=== PATIENT | male | born 1960 | race Caucasian/White ===

== ENCOUNTER → 2017-12-06 | Outpatient (CLI) | payer BC, MEDICAID ==
--- NOTE | 2017-12-07 08:53 | XR ---
EXAMINATION TYPE: XR elbow complete RT DATE OF EXAM: 12/06/2017 COMPARISON: NONE HISTORY: Pain FINDINGS: Three views of the elbow demonstrate no pathologic joint effusion. The osseous structures are intact . There is no acute fracture or dislocation. There is a olecranon spur and hypertrophic change involving the head of the radius. There is a linear band of density along the neck of the radius which may been the basis of fracture. IMPRESSION: 1. No acute fracture or dislocation. If symptoms persist follow-up study in 7 to 10 days could be ob tained. 2. Olecranon spur. 3. Findings suspicious for previous fracture involving the proximal radius correlate clinically.
== END | disposition home or self-care (01) ==
LOC: RADXRYALE 16:03
PROVIDERS: ATTEND Family Medicine
DX: M77.8 Other enthesopathies, not elsewhere classified (principal)

== ENCOUNTER 2018-07-05 22:24 | Emergency (ER) | payer BC, MEDICAID ==
[2018-07-05 22:37] VITALS: RESP 18
[2018-07-05] MEDS ORDERED: KETOROLAC 30 MG/ML 1 ML VIAL IVP STA (23:23)
[2018-07-05 23:51] LABS: Appearance,Urine Clear (Clear); Basophils # (A) 0.1 k/uL (0-0.2); Basophils % (A) 1 %; Bilirubin,Urine Negative (Negative); Blood,Urine Negative (Negative); Color,Urine Light Yellow; Eosinophils # (A) 0.4 k/uL (0-0.7); Eosinophils % (A) 4 %; Glucose,Urine (UA) Negative (Negative); HCT 45.2 % (39.0-53.0); HGB 14.9 gm/dL (13.0-17.5); Ketones,Urine Negative (Negative); Leukocyte Esterase,Urine Negative (Negative); Lymphocytes # (A) 2.5 k/uL (1.0-4.8); Lymphocytes % (A) 32 %; MCH 29.9 pg (25.0-35.0); MCV 90.5 fL (80.0-100.0); Mean Platelet Volume 7.5; Monocytes # (A) 0.5 k/uL (0-1.0); Monocytes % (A) 7 %; Neutrophils # (A) 4.2 k/uL (1.3-7.7); Neutrophils % (A) 53 %; Nitrite,Urine Negative (Negative); Platelet Count 221 k/uL (150-450); Protein,Urine Negative (Negative); RDW 13.3 % (11.5-15.5); Specific Gravity,Urine 1.006 (1.001-1.035); Urobilinogen,Urine <2.0 mg/dL (<2.0); WBC 7.9 k/uL (3.8-10.6)
[2018-07-06 00:03] LABS: ALT 52 U/L (21-72); AST 33 U/L (17-59); Albumin 4.2 g/dL (3.5-5.0); Alkaline Phosphatase 50 U/L (38-126); Amylase 48 U/L (30-110); Anion Gap 6 mmol/L; Blood Urea Nitrogen 17 mg/dL (9-20); Carbon Dioxide 26 mmol/L (22-30); Chloride 108 mmol/L (98-107); Glucose 106 mg/dL (74-99); Lipase 118 U/L (23-300); Potassium 4.3 mmol/L (3.5-5.1); Sodium 140 mmol/L (137-145); Total Bilirubin 0.4 mg/dL (0.2-1.3); Total Protein 7.1 g/dL (6.3-8.2)
--- NOTE | 2018-07-06 00:56 | XR ---
EXAMINATION TYPE: XR chest 2V DATE OF EXAM: 07/05/2018 COMPARISON: NONE HISTORY: Back pain TECHNIQUE: Frontal and lateral views of the chest are obtained. FINDINGS: Heart and mediastinum are normal. Lungs are clear. Diaphragm is normal. Bony thorax is int act. IMPRESSION: Normal chest.
--- NOTE | 2018-07-06 00:57 | XR ---
EXAMINATION TYPE: XR KUB DATE OF EXAM: 07/05/2018 COMPARISON: 01/14/2010 HISTORY: Back pain TECHNIQUE: 2 views upright FINDINGS: Bowel gas pattern is normal. There is no sign of intestinal obstruction or pneumoperitoneum . Fecal pattern is normal. Lung bases are clear. There are no pathologic calcifications over the kidn eys. IMPRESSION: Nonacute abdomen. No change.
--- NOTE | 2018-07-06 01:35 | ED ---
Back Pain HPI - General Chief Complaint: Back Pain/Injury Stated Complaint: Back Pain Time Seen by Provider: 07/05/18 23:09 Source: patient Limitations: no limitations - History of Present Illness Initial Comments: 58-year-old male patient presents to the emergency department today for complaints of right flank and right lower back pain. Patient states been going on for the last month however over the last couple of days it has worsened significantly. Patient states that the pain is sharp and stabbing. Does report the pain increases with movement and taking deep breaths. Patient denies any fevers or chills. Denies any hematuria. He states that the pain did get so bad today that he did have a vomiting episode. Patient denies any known injury to the back. Denies any history of kidney stones. Denies any constipation or diarrhea. Patient denies any recent rash, fever, chills, shortness breath, chest pain, abdominal pain, numbness, tingling, dizziness, weakness, headache, visual changes, or any other complaints. - Related Data Home Medications Medication Instructions Recorded Confirmed Aspirin 81 mg PO DAILY 08/02/14 08/02/14 Famotidine [Pepcid] 20 mg PO BID 08/02/14 08/03/14 Fenofibrate Nanocrystallized 145 mg PO DAILY 08/02/14 08/03/14 [Tricor] Furosemide [Lasix] 10 mg PO DAILY 08/02/14 08/03/14 Lisinopril [Zestril] 20 mg PO DAILY 08/02/14 08/03/14 [employer] Oil/Henderson-3 Fatty Acids 1 each PO TID 08/03/14 08/03/14 [Fish Oil 500 mg Softgel] Vit D3/Folic Acid/B2/B6/B12 1 each PO DAILY 08/03/14 08/03/14 [Folgard Tablet] Previous Rx's Medication Instructions Recorded Acetaminophen-Codeine 300-30mg 1 tab PO Q6H PRN #12 tablet 07/06/18 [Tylenol #3] Allergies Allergy/AdvReac Type Severity Reaction Status Date / Time Iodinated Contrast- Oral and Allergy Anaphylaxis Verified 07/05/18 22:37 IV Dye [Iodinated Contrast Media - IV Dye] Review of Systems ROS Statement: Those systems with pertinent positive or pertinent negative responses have been documented in the HPI. ROS Other: All systems not noted in ROS Statement are negative. 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 Vital signs upon presentation are temperature 98.2, pulse 70, respirations 18, blood pressure 142/77, pulse ox 98% on room air.) Eye exam: Present: normal appearance, PERRL, EOMI. Absent: scleral icterus, conjunctival injection, periorbital swelling ENT exam: Present: normal exam, normal oropharynx, mucous membranes moist Neck exam: Present: normal inspection. Absent: tenderness, meningismus, lymphadenopathy Respiratory exam: Present: normal lung sounds bilaterally. Absent: respiratory distress, wheezes, rales, rhonchi, stridor Cardiovascular Exam: Present: regular rate, normal rhythm, normal heart sounds. Absent: systolic murmur, diastolic murmur, rubs, gallop, clicks GI/Abdominal exam: Present: soft, normal bowel sounds. Absent: distended, tenderness, guarding, rebound, rigid Back exam: Present: normal inspection. Absent: CVA tenderness (R), CVA tenderness (L) Neurological exam: Present: alert, oriented X3, CN II-XII intact Psychiatric exam: Present: normal affect, normal mood Skin exam: Present: warm, dry, intact, normal color. Absent: rash Course Vital Signs 07/05/18 07/06/18 22:34 01:50 Temperature 98.2 F 97.6 F Pulse Rate 70 61 Respiratory 18 18 Rate Blood Pressure 142/77 144/81 O2 Sat by Pulse 98 100 Oximetry Medical Decision Making - Medical Decision Making 58-year-old male patient presented to the emergency department today for evaluation of right flank and right low back pain. Physical examination did reveal some tenderness to the right low back, no CVA tenderness. Abdomen was soft and nontender. Labs reviewed and are unremarkable. Urinalysis was clear. KUB x-ray and chest x-ray were negative for any acute process. Given patient' s increased pain with movement and location of pain distal to his pain is musculoskeletal in nature. We did discuss SI joint dysfunction is a possibility for his symptoms. He is instructed to follow-up with his primary care physician for recheck in 1-2 days. He is instructed to discuss MRI. Return parameters discussed in detail. He verbalizes understanding and agrees with this plan. - Lab Data Result diagrams: 07/05/18 23:42 07/05/18 23:42 Lab Results 07/05/18 07/05/18 07/05/18 Range/Units 23:42 23:42 23:42 WBC 7.9 (3.8-10.6) k/uL RBC 5.00 (4.30-5.90) m/uL Hgb 14.9 (13.0-17.5) gm/dL Hct 45.2 (39.0-53.0) % MCV 90.5 (80.0-100.0) fL MCH 29.9 (25.0-35.0) pg MCHC 33.0 (31.0-37.0) g/dL RDW 13.3 (11.5-15.5) % Plt Count 221 (150-450) k/uL Neutrophils % 53 % Lymphocytes % 32 % Monocytes % 7 % Eosinophils % 4 % Basophils % 1 % Neutrophils # 4.2 (1.3-7.7) k/uL Lymphocytes # 2.5 (1.0-4.8) k/uL Monocytes # 0.5 (0-1.0) k/uL Eosinophils # 0.4 (0-0.7) k/uL Basophils # 0.1 (0-0.2) k/uL Sodium 140 (137-145) mmol/L Potassium 4.3 (3.5-5.1) mmol/L Chloride 108 H (98-107) mmol/L Carbon Dioxide 26 (22-30) mmol/L Anion Gap 6 mmol/L BUN 17 (9-20) mg/dL Creatinine 0.90 (0.66-1.25) mg/dL Est GFR (CKD-EPI)AfAm >90 (>60 ml/min/1.73 sqM) Est GFR (CKD-EPI)NonAf >90 (>60 ml/min/1.73 sqM) Glucose 106 H (74-99) mg/dL Calcium 9.0 (8.4-10.2) mg/dL Total Bilirubin 0.4 (0.2-1.3) mg/dL AST 33 (17-59) U/L ALT 52 (21-72) U/L Alkaline Phosphatase 50 (38-126) U/L Total Protein 7.1 (6.3-8.2) g/dL Albumin 4.2 (3.5-5.0) g/dL Amylase 48 (30-110) U/L Lipase 118 (23-300) U/L Urine Color Light Yellow Urine Appearance Clear (Clear) Urine pH 6.0 (5.0-8.0) Ur Specific [place] 1.006 (1.001-1.035) Urine Protein Negative (Negative) Urine Glucose (UA) Negative (Negative) Urine Ketones Negative (Negative) Urine Blood Negative (Negative) Urine Nitrite Negative (Negative) Urine Bilirubin Negative (Negative) Urine Urobilinogen <2.0 (<2.0) mg/dL Ur Leukocyte Esterase Negative (Negative) - Radiology Data Radiology results: report reviewed, image reviewed Two-view x-ray of the chest is obtained. Heart mediastinum are normal. Lungs are clear. Diaphragm is normal. Bony thorax is intact. Impression by Dr. Davenport shows normal chest. 2 views of the abdomen are obtained. Bowel gas pattern Ostermann. Sometime of intestinal structure pneumoperitoneum. Fecal pattern is normal. Lung bases are clear. There are no pathologic calcifications over the kidneys. Impression by Dr. Davenport shows nonacute abdomen no change. Disposition Clinical Impression: Low back pain Disposition: HOME SELF-CARE Condition: Good Instructions: Acute Low Back Pain (ED) Additional Instructions: Apply warm moist heat to the painful areas. Apply this 20 minutes at a time at least 4 times daily. Continue taking ibuprofen every 6 hours. Use pain medication as needed. Follow-up with your primary care physician for recheck and to discuss possible MRI. Return here immediately for any new, worsening, or concerning symptoms. Prescriptions: Acetaminophen-Codeine 300-30mg [Tylenol #3] 1 tab PO Q6H PRN #12 tablet PRN Reason: Pain Is patient prescribed a controlled substance at d/c from ED?: Yes When asked, does pt state using other controlled substances?: No If prescribed controlled substance>3 days was MAPS reviewed?: Prescribed <3 Days If opioid is for acute pain is fill amount 7 days or less?: Yes If Rx opioid, was Start Talking consent form obtained?: Yes Referrals: Silvano Shipley DO [Primary Care Provider] - 1-2 days Time of Disposition: 01:35
[2018-07-06 01:51] VITALS: BP 144/81; PULSE 61; TEMP 97.6
== END 2018-07-06 01:51 | disposition home or self-care (01) ==
LOC: EC 22:24
DX: M54.5 Low back pain (principal); R10.9 Unspecified abdominal pain; K21.9 Gastro-esophageal reflux disease without esophagitis; E78.5 Hyperlipidemia, unspecified; I10 Essential (primary) hypertension; F17.200 Nicotine dependence, unspecified, uncomplicated; Z90.49 Acquired absence of other specified parts of digestive tract; Z98.890 Other specified postprocedural states; Z87.442 Personal history of urinary calculi; Z79.82 Long term (current) use of aspirin; Z79.899 Other long term (current) drug therapy; Z91.041 Radiographic dye allergy status; Z90.5 Acquired absence of kidney
CPT/HCPCS: 36415; 80053; 82150; 83690; 85025; 81003; 71046; 74018; 99283; 96374; J1885

== ENCOUNTER → 2018-12-10 | Outpatient (CLI) | payer BC, MEDICAID ==
[2018-12-11 11:01] LABS: Basophils # (A) 0.1 k/uL (0-0.2); Basophils % (A) 1 %; Eosinophils # (A) 0.3 k/uL (0-0.7); Eosinophils % (A) 4 %; HCT 47.2 % (39.0-53.0); HGB 15.5 gm/dL (13.0-17.5); Lymphocytes # (A) 1.5 k/uL (1.0-4.8); Lymphocytes % (A) 23 %; MCH 31.3 pg (25.0-35.0); MCHC 32.8 g/dL (31.0-37.0); MCV 95.6 fL (80.0-100.0); Mean Platelet Volume 9.1; Monocytes # (A) 0.5 k/uL (0-1.0); Monocytes % (A) 8 %; Neutrophils # (A) 4.2 k/uL (1.3-7.7); Neutrophils % (A) 62 %; Platelet Count 208 k/uL (150-450); RBC 4.94 m/uL (4.30-5.90); RDW 13.1 % (11.5-15.5); WBC 6.7 k/uL (3.8-10.6)
[2018-12-12 10:14] LABS: Albumin 4.3 g/dL (3.80-4.90); Albumin/Globulin Ratio 1.87 (1.20-2.10); Anion Gap 5.2 mmol/L (4.00-12.00); Calcium 9.2 mg/dL (8.7-10.3); Carbon Dioxide 28.8 mmol/L (21.6-31.8); Globulin 2.3 g/dL (1.6-3.3); LDL Cholesterol,Calculated 117.4 mg/dL (0.0-131.0); Potassium 4.3 mmol/L (3.5-5.5); Total Bilirubin 0.4 mg/dL (0.3-1.2); Total Protein 6.6 g/dL (6.2-8.2); VLDL Calculation 17.6 mg/dL (5.00-40.00)
== END | disposition home or self-care (01) ==
LOC: LABWHC1 10:30
PROVIDERS: ATTEND Physician Assistant Medical
DX: E55.9 Vitamin D deficiency, unspecified (principal); E78.2 Mixed hyperlipidemia; I10 Essential (primary) hypertension
CPT/HCPCS: 36415; 80053; 80061; 82306; 84443; 85025

== ENCOUNTER → 2019-05-22 | Outpatient (CLI) | payer BC, MEDICAID ==
--- NOTE | 2019-05-22 17:34 | XR ---
EXAMINATION TYPE: XR chest 2V DATE OF EXAM: 05/22/2019 COMPARISON: 07/05/2018 TECHNIQUE: PA and lateral views submitted. HISTORY: Cough FINDINGS: The lungs are clear and there is no pneumothorax, pleural effusion, or focal pneumonia. No overt fa ilure. Hypertrophic and degenerative change of the spine. IMPRESSION: 1. No acute process.
== END | disposition home or self-care (01) ==
LOC: RADXRYALE 16:16
PROVIDERS: ATTEND Physician Assistant Medical
DX: R05 Cough (principal)
CPT/HCPCS: 71046

== ENCOUNTER → 2019-05-27 | Outpatient (CLI) | payer BC, MEDICAID ==
[2019-05-27 09:21] LABS: Basophils # (A) 0.1 k/uL (0-0.2); Basophils % (A) 1 %; Eosinophils # (A) 0.3 k/uL (0-0.7); Eosinophils % (A) 3 %; HCT 45.7 % (39.0-53.0); HGB 15.2 gm/dL (13.0-17.5); Lymphocytes # (A) 2.5 k/uL (1.0-4.8); Lymphocytes % (A) 25 %; MCH 30.4 pg (25.0-35.0); MCHC 33.2 g/dL (31.0-37.0); MCV 91.7 fL (80.0-100.0); Mean Platelet Volume 7.6; Monocytes # (A) 0.6 k/uL (0-1.0); Monocytes % (A) 6 %; Neutrophils # (A) 6.3 k/uL (1.3-7.7); Neutrophils % (A) 63 %; Platelet Count 233 k/uL (150-450); RBC 4.99 m/uL (4.30-5.90); RDW 13.3 % (11.5-15.5)
[2019-05-27 17:08] LABS: Albumin 4.4 g/dL (3.80-4.90); BUN/Creat Ratio 24.44 Ratio (12.00-20.00); Calcium 9.3 mg/dL (8.7-10.3); Globulin 2.2 g/dL (1.6-3.3); Potassium 4.3 mmol/L (3.5-5.5); Total Bilirubin 0.3 mg/dL (0.3-1.2); Total Protein 6.6 g/dL (6.2-8.2)
== END | disposition home or self-care (01) ==
LOC: LABWHC1 08:31
PROVIDERS: ATTEND Family Medicine
DX: I10 Essential (primary) hypertension (principal); K21.0 Gastro-esophageal reflux disease with esophagitis; E78.2 Mixed hyperlipidemia; R60.9 Edema, unspecified
CPT/HCPCS: 80061; 80053; 84443; 85025; 36415; G0103

== ENCOUNTER 2019-07-07 06:22 | Observation (INO) | payer BC, MEDICAID ==
[2019-07-07] MEDS ORDERED: ASPIRIN 81 MG PO STA (06:29)
[2019-07-07] MEDS ORDERED: SODIUM CHLORIDE 0.9% 1,000 ML IV STA ×2 (06:29)
[2019-07-07] MEDS ORDERED: HEPARIN SODIUM,PORCINE 5,000 UNIT/ML 1 ML VIAL IV ONE (06:44)
[2019-07-07] MEDS ORDERED: HEPARIN SODIUM,PORCINE 5,000 UNIT/ML 1 ML VIAL IV PRN (06:44)
[2019-07-07] MEDS ORDERED: HEPARIN SOD,PORK IN 0.45% NACL 25,000 UNIT in 0.45% NACL 1 250ML.BAG IV SCH (06:45)
--- NOTE | 2019-07-07 06:48 | ED ---
Chest Pain HPI - General Chief Complaint: Chest Pain Stated Complaint: Chest pain Time Seen by Provider: 07/07/19 06:28 Source: patient, RN notes reviewed, old records reviewed Mode of arrival: ambulatory Limitations: no limitations - History of Present Illness Initial Comments: 59-year-old male presents emergency department today with an onset of left-sided chest pain rating towards the left axilla that woke him up at 3 AM. Patient reports he's had no previous cardiac history, and has not had a stress test or EKG in 20 years. He is a heavy smoker with a strong family history of heart disease. Patient reports he has a history of hypertension and hyperlipidemia. Patient states that he does have associated shortness of breath. States the pain is worse with taking a deep breath. Patient denies any travel history. He does report that he said no worsening leg swelling or pain. He does take Lasix daily. 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 Patient denies any recent fever, chills, back pain, abdominal pain, nausea vomiting, numbness or tingling, dysuria or hematuria, constipation or diarrhea, headaches or visual changes, or any other current symptoms - Related Data Home Medications Medication Instructions Recorded Confirmed Aspirin 81 mg PO DAILY 08/02/14 07/07/19 Ezetimibe 10 mg PO HS 07/07/19 07/07/19 Famotidine [Pepcid] 20 mg PO W/LUNCH 07/07/19 07/07/19 Furosemide [Lasix] 20 mg PO DAILY 07/07/19 07/07/19 Lisinopril 40 mg PO DAILY 07/07/19 07/07/19 Allergies Allergy/AdvReac Type Severity Reaction Status Date / Time Iodinated Contrast- Oral and Allergy Anaphylaxis Verified 07/05/18 22:37 IV Dye [Iodinated Contrast Media - IV Dye] anesthetics (unknown) Allergy see Uncoded 07/07/19 07:08 comments Review of Systems ROS Statement: Those systems with pertinent positive or pertinent negative responses have been documented in the HPI. ROS Other: All systems not noted in ROS Statement are negative. EKG Findings - EKG Comments: EKG Findings:: Patient's EKG performed at 6:34 AM shows sinus rhythm incomplete right bundle branch block. 4. EKG. Ventricular rate 79 bpm. Verbal 152 ms. She shinto is 102 ms. QT QTc is 372/426 no seconds. 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 Alert and oriented 3. Clutching chest and Tuttle sign. Limitations: no limitations Head exam: Present: atraumatic, normocephalic, normal inspection Eye exam: Present: normal appearance ENT exam: Present: normal exam, mucous membranes moist Neck exam: Present: normal inspection. Absent: tenderness, meningismus, lymphadenopathy Respiratory exam: Present: normal lung sounds bilaterally. Absent: respiratory distress, wheezes, rales, rhonchi, stridor Cardiovascular Exam: Present: regular rate, normal rhythm, normal heart sounds. Absent: systolic murmur, diastolic murmur, rubs, gallop, clicks GI/Abdominal exam: Present: soft, normal bowel sounds. Absent: distended, tenderness, guarding, rebound, rigid Extremities exam: Present: normal inspection, full ROM, normal capillary refill. Absent: tenderness, pedal edema, joint swelling, calf tenderness Back exam: Present: normal inspection Neurological exam: Present: alert, oriented X3, CN II-XII intact Psychiatric exam: Present: normal affect, normal mood Skin exam: Present: warm, dry, intact, normal color. Absent: rash Course Vital Signs 07/07/19 07/07/19 06:24 07:01 Temperature 97.4 F L Pulse Rate 71 91 Respiratory 16 18 Rate Blood Pressure 137/92 110/82 O2 Sat by Pulse 100 94 L Oximetry [facility] Patient is a 59-year-old male presents emergency department today for evaluation for onset of left-sided chest pain rating to the left axilla starting at 3 AM today. He has positive family history of heart disease. He is a smoker with history of hypertension and hyperlipidemia. Patient reports that pain is seeming to be pleuritic. I did check a d-dimer which is mildly elevated is 0.62. Asians EKG shows evidence of right bundle-branch block. No previous EKG to compare from. Patient was initiated on aspirin and nitro and did report some relief of his chest pain. I started the Patient on low intensity heparin. Chest x-ray shows Mild bilateral lung basal segmental atelectasis. CT ATKINS chest No evidence for pulmonary embolism at this time. Nonspecific mediastinal hilar adenopathy. Solid nodule in the right lower lobe measuring 8.3 mm. Follow-up in 3-4 months is advised. Patient advised for concern for cardiac risk factors and want to admit patient for cardio consult. Patient advised with pulmonary nodule. Disposition Clinical Impression: Chest pain, Pulmonary nodule Disposition: ADMITTED IP TO THIS HOSP Condition: Good Instructions (If sedation given, give patient instructions): Chest Pain (ED) Is patient prescribed a controlled substance at d/c from ED?: No Referrals: Silvano Shipley DO [Primary Care Provider] - 1-2 days Time of Disposition: 08:54
[2019-07-07] MEDS: NITROGLYCERIN SL TABS 0.4 MG TAB SUBLINGUAL STA ×3 (06:52→07:07)
[2019-07-07 06:53] LABS: Basophils # (A) 0.1 k/uL (0-0.2); Basophils % (A) 1 %; Eosinophils # (A) 0.3 k/uL (0-0.7); Eosinophils % (A) 3 %; HCT 47.2 % (39.0-53.0); HGB 15.7 gm/dL (13.0-17.5); Lymphocytes # (A) 1.7 k/uL (1.0-4.8); Lymphocytes % (A) 20 %; MCH 30.5 pg (25.0-35.0); MCHC 33.2 g/dL (31.0-37.0); MCV 91.8 fL (80.0-100.0); Mean Platelet Volume 7.9; Monocytes # (A) 0.6 k/uL (0-1.0); Monocytes % (A) 8 %; Neutrophils # (A) 5.4 k/uL (1.3-7.7); Neutrophils % (A) 66 %; Platelet Count 225 k/uL (150-450); RBC 5.14 m/uL (4.30-5.90); RDW 13.6 % (11.5-15.5); WBC 8.3 k/uL (3.8-10.6)
[2019-07-07 07:08] LABS: INR 0.9 (<1.2); Partial Thromboplastin Time 26.6 sec (22.0-30.0); Prothrombin Time 9.8 sec (9.0-12.0)
[2019-07-07 07:14] LABS: ALT 55 U/L (21-72); AST 35 U/L (17-59); African American GFR (CKD) >90 (>60 ml/min/1.73 sqM); Albumin 4.5 g/dL (3.5-5.0); Alkaline Phosphatase 53 U/L (38-126); Anion Gap 10 mmol/L; Blood Urea Nitrogen 20 mg/dL (9-20); Calcium 9.3 mg/dL (8.4-10.2); Carbon Dioxide 28 mmol/L (22-30); Chloride 104 mmol/L (98-107); Glucose 130 mg/dL (74-99); Magnesium 2.2 mg/dL (1.6-2.3); Potassium 4.5 mmol/L (3.5-5.1); Sodium 142 mmol/L (137-145); Total Bilirubin 0.9 mg/dL (0.2-1.3); Total Protein 7.5 g/dL (6.3-8.2)
--- NOTE | 2019-07-07 07:36 | XR ---
EXAMINATION TYPE: XR chest 2V DATE OF EXAM: 07/07/2019 COMPARISON: 05/22/2019 INDICATION: Chest pain TECHNIQUE: Frontal and lateral views of the chest are obtained. FINDINGS: The heart size is normal. The pulmonary vasculature is normal. There appears to be some mild subsegmental atelectasis at the bilateral lung bases.. IMPRESSION: 1. Mild bilateral lung base subsegmental atelectasis.
[2019-07-07 07:48] LABS: D-Dimer 0.62 mg/L FEU (<0.60)
[2019-07-07] MEDS ORDERED: diphenhydrAMINE 50 MG/ML 1 ML VIAL IVP STA (07:49)
[2019-07-07] MEDS ORDERED: FAMOTIDINE 20 MG/2 ML VIAL IV STA (07:49)
[2019-07-07] MEDS ORDERED: methylPREDNISolone SOD SUCCI 125 MG/2 ML VIAL IV STA (07:49)
--- NOTE | 2019-07-07 08:45 | CT ---
EXAMINATION TYPE: CT chest angio for PE DATE OF EXAM: 07/07/2019 COMPARISON: None HISTORY: SOB, Lt sided chest pain, elevated d dimer CT DLP: 605.5 mGycm CONTRAST: CT chest with contrast and 3D reconstruction with MIP imaging is performed with IV Contrast, patient injected with 82 mL of Isovue 370. Contrast-enhanced CT of the chest was performed through the course of the pulmonary arteries with garcía g and mediastinal window settings submitted. 3D reconstruction with MIP imaging was also performed. PULMONARY ARTERIES: The pulmonary arteries and their major tributaries are patent. I do not see sylwia dence for sizable filling defect to suggest pulmonary embolic process. LUNGS: The lungs are clear and free of infiltrate. 8.3 mm pulmonary nodule right lower lobe posterior ly image 111. 3 mm subpleural nodule right upper lobe image 77. Basilar atelectasis. No focal consoli dation. MEDIASTINUM: Thoracic aorta is of normal caliber,however, evaluation is limited given timing of the contrast bolus. The heart is enlarged. There are multiple prominent mediastinal lymph nodes measuring up to 1.5 cm AP window. Subcarinal adenopathy measures 1.6 cm. Sliding-type hiatal hernia noted. HILAR STRUCTURES: No evidence for mass. Lateral hilar adenopathy measuring 1.9 cm on the right and up to 1.5 cm on the left. UPPER ABDOMEN: No significant abnormality is seen. IMPRESSION: 1. No evidence for Pulmonary embolism at this time. 2. Nonspecific mediastinal and hilar adenopathy. Correlate clinically. 3. Solid nodule right lower lobe measuring 8.3 mm. Follow-up in 3-4 months is advised.
[2019-07-07] MEDS ORDERED: NITROGLYCERIN SL TABS 0.4 MG TAB SUBLINGUAL PRN (08:55)
[2019-07-07] MEDS ORDERED: MORPHINE SULFATE 4 MG/ML SYRINGE IV PRN (08:55)
[2019-07-07] MEDS ORDERED: HYDROcodone/APAP 5-325MG 1 EACH TAB PO PRN (11:36)
[2019-07-07] MEDS ORDERED: HYDROmorphone 0.5 MG/0.5 ML SYRINGE IVP PRN (11:44)
[2019-07-07] MEDS: ACETAMINOPHEN TAB 325 MG TAB PO PRN ×2 (12:00→17:34)
--- NOTE | 2019-07-07 13:08 | P.CRDCN ---
History of Present Illness History of present illness: This is a pleasant 59-year-old male past medical history significant for hypertension, dyslipidemia, gastroesophageal reflux disease, malignant hyperthermia and chronic nicotine dependence. He denies history of coronary artery disease. He does have family history of premature CAD. We have been asked to see him in consultation for chest pain. He states he woke up at 0300 from [facility] with a sharp pain in the left precordial region with inability to take a deep breath. The pain was worse with deep inspiration. There was no radiation to the arm, back, neck or jaw. There was no associated shortness of breath, dizziness, palpitations, nausea, vomiting or diaphoresis. He arrived in ED with ongoing chest discomfort and was given nitroglycerin with no relief. At the time of my exam he is seen sitting up eating lunch. He continues to have chest pain with deep inspiration. EKG reveals incomplete right bundle branch block with underlying sinus mechanism. No acute ST changes. Chest xray is negative for an acute cardiopulmonary process. CTA chest negative for PE, no aortic abnormality, RLL nodule. Laboratory data reviewed, CBC unremarkable, d-dimer 0.62, sodium 142, potassium 4.5, creatinine 0.94, cardiac enzymes negative x1, proBNP 26. Current cardiac medications include zetia 10 mg daily, lasix 20 mg daily, lisinopril 40 mg daily and aspirin 81 mg daily. At the time of my exam: CONSTITUTIONAL: Denies fever. Denies chills. EYES: Denies blurred vision. Denies vision changes. Denies eye pain. EARS, NOSE, MOUTH & THROAT: Denies headache. Denies sore throat. Denies ear pain. CARDIOVASCULAR: Denies chest pain. Denies shortness of breath. Denies orthopnea. Denies PND. Denies palpitations. RESPIRATORY: Denies cough. GASTROINTESTINAL: Denies abdominal pain. Denies diarrhea. Denies constipation. Denies nausea. Denies vomiting. MUSCULOSKELETAL: Denies myalgias. INTEGUMENTARY: Denies pruitis. Denies rash. NEUROLOGIC: Denies numbness. Denies tingling. Denies weakness. PSYCHIATRIC: Denies anxiety. Denies depression. ENDOCRINE: Denies fatigue. Denies weight change. Denies polydipsia. Denies polyurina. GENITOURINARY: Denies burning, hematuria or urgency with micturation. HEMATOLOGIC: Denies history of anemia. Denies bleeding. Blood pressure 112/76 heart rate 60 afebrile maintaining oxygen saturation on room air GENERAL: This is a 59-year-old male in no apparent distress at the time of my examination. HEENT: Head is atraumatic, normocephalic. Pupils are equal, round. Sclerae anicteric. Conjunctivae are clear. Mucous membranes of the mouth are moist. Neck is supple. There is no jugular venous distention. No carotid bruit is heard. LUNGS: Clear to auscultation no wheezes, rales or rhonchi. No chest wall tenderness is noted on palpation or with deep breathing. HEART: Regular rate and rhythm without murmurs, rubs or gallops. S1 and S2 hea rd[address] ABDOMEN: Soft, nontender. Bowel sounds are heard. No organomegaly noted. EXTREMITIES: No evidence of peripheral edema and no calf tenderness noted. VASCULAR: Radial and dorsalis pedis pulses palpated, no evidence of clubbing. NEUROLOGIC: Patient is awake, alert and oriented x3. ASSESSMENT Pleuritic chest pain, atypical for angina. Hypertension Dyslipidemia GERD Chronic nicotine dependence PLAN Pain is atypical for angina. Pleuritic and ongoing with deep inspiration suggesting of underlying inflammatory process. Check echocardiogram to assess cardiac structure and function. Continue to obtain serial cardiac enzymes to rule out an acute event. Once an acute event has been ruled out he may be discharged from a cardiac perspective. Ongoing medical management. Follow up in the office with Dr. Vanegas for an outpatient stress test. Thank you kindly for this consultation. Nurse Practitioner note has been reviewed, I agree with a documented findings and plan of care. Patient was seen and examined. 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 History of Any Multi-Drug Resistant Organisms: None Reported Past Surgical History: Appendectomy, Hernia Repair Additional Past Surgical History / Comment(s): L partial nephrectomy, colono scopy with polypectomy, R inguinal hernia repair, bilateral hydrocele surgery, vas deferens repair, cystoscopy, hemorrhoidectomy. Past Anesthesia/Blood Transfusion Reactions: Malignant Hyperthermia Additional Past Anesthesia/Blood Transfusion Reaction / Comment(s): MALIGNANT HYPERTHERMIA Smoking Status: Current every day smoker - Past Family History Father Family Medical History: Coronary Artery Disease (CAD), Hyperlipidemia Additional Family Medical History / Comment(s): 4 vessel CABG at age 55 and a pacer at age 57yrs. Father at the age of 87yrs. Mother Family Medical History: Liver Disease Additional Family Medical History / Comment(s): colon polyps. Medications and Allergies Home Medications Medication Instructions Recorded Confirmed Type Aspirin 81 mg PO DAILY 08/02/14 07/07/19 History Ezetimibe 10 mg PO HS 07/07/19 07/07/19 History Famotidine [Pepcid] 20 mg PO W/LUNCH 07/07/19 07/07/19 History Furosemide [Lasix] 20 mg PO DAILY 07/07/19 07/07/19 History Lisinopril 40 mg PO DAILY 07/07/19 07/07/19 History Allergies Allergy/AdvReac Type Severity Reaction Status Date / Time Iodinated Contrast- Oral and Allergy UNKNOWN-OK Verified 07/07/19 09:12 IV Dye WITH [Iodinated Contrast Media - PREMEDS IV Dye] anesthetics (unknown) Allergy see Uncoded 07/07/19 07:08 comments Physical Exam Vitals: Vital Signs Temp Pulse Pulse Resp BP BP Pulse Ox 07/07/19 10:37 97.7 F 60 17 112/76 95 07/07/19 10:17 60 18 109/68 97 07/07/19 09:01 61 18 111/76 98 07/07/19 07:01 91 18 110/82 94 L 07/07/19 06:24 97.4 F L 71 16 137/92 100 Intake and Output 07/06/19 07/07/19 07/07/19 22:59 06:59 14:59 Other: Weight 108.862 kg Results 07/07/19 06:35 07/07/19 06:35 Cardiac Enzymes 07/07/19 07/07/19 Range/Units 06:35 06:35 AST 35 (17-59) U/L Troponin I <0.012 (0.000-0.034) ng/mL Coagulation 07/07/19 Range/Units 06:35 PT 9.8 (9.0-12.0) sec APTT 26.6 (22.0-30.0) sec CBC 07/07/19 Range/Units 06:35 WBC 8.3 (3.8-10.6) k/uL RBC 5.14 (4.30-5.90) m/uL Hgb 15.7 (13.0-17.5) gm/dL Hct 47.2 (39.0-53.0) % Plt Count 225 (150-450) k/uL Comprehensive Metabolic Panel 07/07/19 Range/Units 06:35 Sodium 142 (137-145) mmol/L Potassium 4.5 (3.5-5.1) mmol/L Chloride 104 (98-107) mmol/L Carbon Dioxide 28 (22-30) mmol/L BUN 20 (9-20) mg/dL Creatinine 0.94 (0.66-1.25) mg/dL Glucose 130 H (74-99) mg/dL Calcium 9.3 (8.4-10.2) mg/dL AST 35 (17-59) U/L ALT 55 (21-72) U/L Alkaline Phosphatase 53 (38-126) U/L Total Protein 7.5 (6.3-8.2) g/dL Albumin 4.5 (3.5-5.0) g/dL Current Medications Generic Name Dose Route Start Last Admin Trade Name Freq PRN Reason Stop Dose Admin Acetaminophen 650 mg 07/07/19 11:44 07/07/19 12:00 Tylenol Tab PO 650 mg Q4HR PRN Administration Fever and/ or Pain Hydrocodone Bitart/Acetaminophen 1 each 07/07/19 11:36 [place] 5-325 PO Q6HR PRN Pain Aspirin 325 mg 07/08/19 09:00 Aspirin PO DAILY OLYA Heparin Sodium (Porcine) 0 unit 07/07/19 06:44 Heparin IV PER PROTOCOL PRN Low PTT Protocol Hydromorphone HCl 0.5 mg 07/07/19 11:44 Dilaudid IVP Q6HR PRN Pain Sodium Chloride 1,000 mls @ 100 mls/hr 07/07/19 06:29 07/07/19 06:51 Saline 0.9% IV 07/07/19 16:28 100 mls/hr .Q10H STA Administration Heparin Sodium/Sodium Chloride 250 mls @ 9.994 mls/hr 07/07/19 06:45 07/07/19 07:10 25,000 unit/ Sodium Chloride IV 9.18 units/kg/hr .Q24H OLYA 9.994 mls/hr Administration Protocol 9.18 UNITS/KG/HR Morphine Sulfate 4 mg 07/07/19 08:55 Morphine Sulfate (Inj) IV Q5M PRN Chest Pain Nitroglycerin 0.4 mg 07/07/19 08:55 Nitrostat SUBLINGUAL Q5M PRN Chest Pain Intake and Output 07/06/19 07/07/19 07/07/19 22:59 06:59 14:59 Other: Weight 108.862 kg 07/07/19 06:35 07/07/19 06:35
--- NOTE | 2019-07-07 13:13 | ECHOF ---
Referral Reason:chest pain MEASUREMENTS -------- HEIGHT: 182.9 cm WEIGHT: 108.9 kg BP: RVIDd: 2.8 cm (< 3.3) IVSd: 1.3 cm (0.6 - 1.1) LVIDd: 3.6 cm (3.9 - 5.3) LVPWd: 1.4 cm (0.6 - 1.1) IVSs: 1.6 cm LVIDs: 1.3 cm LVPWs: 1.5 cm LAESV Index (A-L): 29.97 ml/m Ao Diam: 3.3 cm (2.0 - 3.7) AV Cusp: 2.1 cm (1.5 - 2.6) LA Diam: 3.4 cm (2.7 - 3.8) MV EXCURSION: 13.275 mm (> 18.000) MV EF SLOPE: 76 mm/s (70 - 150) EPSS: 0.7 cm MV E Tesfaye: 0.75 m/s MV DecT: 162 ms MV A Tesfaye: 0.61 m/s MV E/A Ratio: 1.22 RAP: 5.00 mmHg RVSP: 18.36 mmHg FINDINGS -------- Sinus rhythm. This was a technically good study. The left ventricular size is normal. There is mild concentric left ventricular hypertrophy. Overa ll left ventricular systolic function is normal with, an EF between 55 - 60 %. The right ventricle is normal in size. LA is midly dilated 29-33ml/m2. The right atrial size is normal. Interatrial and interventricular septum intact. The aortic valve is trileaflet and appears structurally normal. The mitral valve is normal. The mitral valve leaflets are mildly thickened. There is trace mitral regurgitation. The tricuspid valve appears structurally normal. Trace tricuspid regurgitation present. Right west tricular systolic pressure is normal at < 35 mmHg. There is no pulmonic regurgitation present. The aortic root size is normal. Normal inferior vena cava with normal inspiratory collapse consistent with estimated right atrial pre ssure of 5 mmHg. CONCLUSIONS -------- 1. Sinus rhythm. 2. This was a technically good study. 3. The left ventricular size is normal. 4. There is mild concentric left ventricular hypertrophy. 5. Overall left ventricular systolic function is normal with, an EF between 55 - 60 %. 6. The right ventricle is normal in size. 7. LA is midly dilated 29-33ml/m2. 8. The right atrial size is normal. 9. Interatrial and interventricular septum intact. 10. The aortic valve is trileaflet and appears structurally normal. 11. The mitral valve is normal. 12. The mitral valve leaflets are mildly thickened. 13. There is trace mitral regurgitation. 14. The tricuspid valve appears structurally normal. 15. Trace tricuspid regurgitation present. 16. Right ventricular systolic pressure is normal at < 35 mmHg. 17. There is no pulmonic regurgitation present. 18. The aortic root size is normal. 19. Normal inferior vena cava with normal inspiratory collapse consistent with estimated right atrial pressure of 5 mmHg. NETWORK DESIGNER: Palmira Moody RDCS
[2019-07-07 13:46] LABS: Cholesterol 198 mg/dL (<200); HDL Cholesterol 31 mg/dL (40-60); LDL Cholesterol,Calculated 137 mg/dL (0-99); Triglycerides 149 mg/dL (<150)
[2019-07-07] MEDS: FUROSEMIDE 20 MG TAB PO SCH (14:19)
[2019-07-07] MEDS: LISINOPRIL 20 MG TAB PO SCH (14:19)
--- NOTE | 2019-07-07 15:30 | HP ---
HISTORY AND PHYSICAL DATE OF SERVICE: 07/07/2019 CHIEF COMPLAINT: Chest pain. HISTORY OF PRESENT ILLNESS: This 59-year-old gentleman with a past medical history of multiple medical problems, including GERD, hypertension, hyperlipidemia, horseshoe kidney, being followed by Dr. Shipley in the outpatient setting, was complaining of chest pain. The patient woke up at 3:00 in the morning with severe left-sided chest pain which was radiating to the left shoulder and left axilla. The pain was waxing and waning; it was severe, without any associated nausea, palpitations, shortness of breath or diaphoresis. The patient came to [facility] and was admitted for further evaluation and treatment. The pain was increasing with respirations. No cough was reported. Patient also reports heavy work while working in the yard for a few days prior to that. Initial EKGs and troponins are negative at this time. Cardiology evaluation in progress. There is no history of any fever, rigor or chills. No history of headache, loss of consciousness, seizures. PAST MEDICAL HISTORY: 1. History of GERD. 2. Hypertension. 3. Hyperlipidemia. 4. History of renal disease. 5. History of horseshoe kidney. 6. Appendectomy. 7. Hernia surgery. MEDICATIONS PRIOR TO ADMISSION: 1. Pepcid 20 mg with lunch. 2. Aspirin 81 mg daily. 3. Lisinopril 40 mg daily. 4. Lasix 20 mg daily. 5. Zetia 10 mg at bedtime. ALLERGIES: 1. IODINATED CONTRAST DYES. 2. ANESTHETICS. FAMILY HISTORY: History of coronary artery disease and hyperlipidemia, 4-vessel CABG at the age of 55 and pacemakers. SOCIAL HISTORY: History of smoking and currently. Occasional alcohol. REVIEW OF SYSTEMS: ENT: No diminished hearing. No diminished vision. CARDIOVASCULAR SYSTEM: As mentioned earlier. RESPIRATORY SYSTEM: As mentioned earlier. GI: No nausea, vomiting. : No dysuria or retention. NERVOUS SYSTEM: No numbness, weakness. ALLERGY/IMMUNOLOGY: No asthma, hayfever. MUSCULOSKELETAL: As mentioned earlier. HEMATOLOGY/ONCOLOGY: No history of anemia. ENDOCRINE: No history of diabetes, hypothyroidism. CONSTITUTIONAL: As mentioned earlier. DERMATOLOGY: Negative. RHEUMATOLOGY: Negative. PSYCHIATRY: As mentioned earlier. PHYSICAL EXAMINATION: Patient is alert, oriented x3. Pulse is 60, blood pressure is 112/76, respiratory rate 17, temperature 97.7, pulse ox 94% on room air. HEENT: Conjunctivae normal. Oral mucosa moist. NECK: No jugular venous distention. No carotid bruit. No lymph node enlargement. CARDIOVASCULAR SYSTEM: S1, S2 muffled. No S3. No S4. No murmur. No thrills. RESPIRATORY SYSTEM: Breath sounds diminished at the bases. No rhonchi. No crackles. ABDOMEN: Soft, obese, non-tender. No mass palpable. No hepatosplenomegaly. LEGS: No edema. No swelling. NERVOUS SYSTEM: Higher functions as mentioned earlier. Moves all 4 limbs. No focal motor or sensory deficit. LYMPHATICS: No lymph node palpable in neck, axillae or groin. JOINTS: No active deforming arthropathy. LABS: CBC within normal limits. INR 0.9. Sodium 142, potassium 4.5. Glucose 130. LDL is 137 and HDL is 31. ASSESSMENT: 1. Left-sided chest pain, possibly unstable angina. Rule out myocardial infarction. Rule out pleurisy. 2. History of and continued ongoing nicotine dependence. 3. Hyperlipidemia with LDL of 137. 4. Gastroesophageal reflux disease. 5. Hypertension. 6. History of horseshoe kidney. 7. History of diverticulosis. 8. Rectal adenoma. 9. History of appendectomy. 10.History of partial nephrectomy. 11.History of malignant hyperthermia. 12.Continued ongoing nicotine dependence. 13.Obesity with body mass index 32.5. 14.Nonspecific mediastinal hilar lymphadenopathy as well as solid nodule in right lower lobe measuring 8.[address] scan that needs outpatient followup. RECOMMENDATIONS AND DISCUSSION: In this 59-year-old gentleman who was admitted with multiple medical issues, at this time we will monitor the patient closely. Unstable angina protocol. Rule out myocardial infarction. Cardiology consultation. Possible stress test. The patient underwent a chest CTA which showed no evidence of any acute pulmonary embolism. Nonspecific mediastinal hilar lymphadenopathy was noted along with a solid nodule about 8.3 mm in the right lower lobe. Followup was recommended. A 2D echo has been done which showed ejection fraction about 55% to 60% and minimal valvular abnormalities. Will resume the home medications. Prognosis guarded because of multiple complex medical issues. Further recommendations to follow. A copy of this dictation is being forwarded to Dr. Shipley, who is the primary physician. MMODL / IJN: [id number] /
[2019-07-07 20:51] VITALS: RESP 18
[2019-07-07] MEDS ORDERED: EZETIMIBE 10 MG TAB PO SCH (21:00)
[2019-07-08] MEDS: LISINOPRIL 20 MG TAB PO SCH (07:47)
[2019-07-08] MEDS: FUROSEMIDE 20 MG TAB PO SCH (07:47)
[2019-07-08 08:12] LABS: Basophils % (A) 0 %; Eosinophils # (A) 0.1 k/uL (0-0.7); Eosinophils % (A) 1 %; HCT 44.5 % (39.0-53.0); HGB 14.7 gm/dL (13.0-17.5); Lymphocytes # (A) 2.1 k/uL (1.0-4.8); Lymphocytes % (A) 16 %; MCH 30.6 pg (25.0-35.0); MCHC 33.1 g/dL (31.0-37.0); MCV 92.4 fL (80.0-100.0); Monocytes # (A) 0.5 k/uL (0-1.0); Monocytes % (A) 4 %; Neutrophils % (A) 78 %; Platelet Count 216 k/uL (150-450); RBC 4.81 m/uL (4.30-5.90); RDW 13.6 % (11.5-15.5); WBC 12.9 k/uL (3.8-10.6)
[2019-07-08 08:25] VITALS: BP 129/76; PULSE 83; TEMP 98.3
[2019-07-08 08:58] LABS: African American GFR (CKD) >90 (>60 ml/min/1.73 sqM); Anion Gap 9 mmol/L; Blood Urea Nitrogen 17 mg/dL (9-20); Calcium 8.8 mg/dL (8.4-10.2); Carbon Dioxide 26 mmol/L (22-30); Chloride 107 mmol/L (98-107); Glucose 157 mg/dL (74-99); Potassium 4.2 mmol/L (3.5-5.1); Sodium 142 mmol/L (137-145)
[2019-07-08] MEDS ORDERED: ASPIRIN 81 MG PO SCH (09:00)
[2019-07-08] MEDS ORDERED: ATORVASTATIN 40 MG TAB PO SCH (09:00)
[2019-07-08] MEDS ORDERED: ASPIRIN 325 MG TAB PO SCH (09:00)
--- NOTE | 2019-07-08 11:17 | P.PN ---
Subjective This is a pleasant 59-year-old male past medical history significant for hypertension, dyslipidemia, gastroesophageal reflux disease, malignant hyperthermia and chronic nicotine dependence. He denies history of coronary artery disease. He does have family history of premature CAD. We have been asked to see him in consultation for chest pain. An acute coronary event has been ruled out. He continues to have mild discomfort with deep inspiration. He states overall the level of discomfort has greatly decreased since admission. LDL 137. Echocardiogram reveals preserved LV systolic motion with ejection fraction 55-60%. Blood pressure 129/76 heart rate 83 afebrile maintaining oxygen saturation on room air. GENERAL: This is a 59-year-old male in no apparent distress at the time of my examination. HEENT: Head is atraumatic, normocephalic. Pupils are equal, round. Sclerae anicteric. Conjunctivae are clear. Mucous membranes of the mouth are moist. Neck is supple. There is no jugular venous distention. No carotid bruit is heard. LUNGS: Clear to auscultation no wheezes, rales or rhonchi. No chest wall tenderness is noted on palpation or with deep breathing. HEART: Regular rate and rhythm without murmurs, rubs or gallops. S1 and S2 heard. EXTREMITIES: No evidence of peripheral edema and no calf tenderness noted. ASSESSMENT Pleuritic chest pain, atypical for angina. Hypertension Dyslipidemia GERD Chronic nicotine dependence PLAN Initiate on atorvastatin. Lifestyle modifications discussed her LDL cholestero l. Smoking cessation recommended. Stable for discharge outpatient stress testing in the office with Dr. Vanegas. Nurse Practitioner note has been reviewed, I agree with a documented findings and plan of care. Patient was seen and examined. Objective - Vital Signs Vital signs: Vital Signs Temp 98.3 F 07/08/19 08:00 Pulse 83 07/08/19 08:00 Resp 18 07/08/19 08:00 BP 129/76 07/08/19 08:00 Pulse Ox 94 L 07/08/19 08:00 Intake & Output 07/07/19 07/08/19 07/08/19 18:59 06:59 18:59 Other: # Voids 3 2 - Labs CBC & Chem 7: 07/08/19 07:42 07/08/19 07:42 Labs: Abnormal Lab Results - Last 24 Hours (Table) 07/07/19 07/07/19 07/08/19 Range/Units 06:35 13:06 07:42 WBC 12.9 H (3.8-10.6) k/uL Neutrophils # 10.0 H (1.3-7.7) k/uL APTT 34.4 H (22.0-30.0) sec Glucose (74-99) mg/dL LDL Cholesterol, Calc 137 H (0-99) mg/dL HDL Cholesterol 31 L (40-60) mg/dL 07/08/19 Range/Units 07:42 WBC (3.8-10.6) k/uL Neutrophils # (1.3-7.7) k/uL APTT (22.0-30.0) sec Glucose 157 H (74-99) mg/dL LDL Cholesterol, Calc (0-99) mg/dL HDL Cholesterol (40-60) mg/dL
[2019-07-08] MEDS ORDERED: FAMOTIDINE 20 MG TAB PO SCH (12:30)
--- NOTE | 2019-07-09 00:04 | DS ---
DISCHARGE SUMMARY DATE OF SERVICE: 07/08/2019. FINAL DIAGNOSES: 1. Left-sided chest pain possibly musculoskeletal chest pain, possible pleurisy, myocardial infarction ruled out. 2. History of continued ongoing nicotine dependence. 3. Hyperlipidemia with LDL of 137. 4. Gastroesophageal reflux disease. 5. Hypertension. 6. History of horseshoe kidney. 7. History of diverticulosis. 8. Rectal adenoma history. 9. History of appendectomy. 10.History of partial nephrectomy. 11.History of malignant hyperthermia. 12.Continued ongoing nicotine dependence. 13.Obesity with body mass index of 32.5. 14.Nonspecific mediastinal hilar lymphadenopathy as well as solid nodule in the right lower lobe measuring 8.[address] scan, needs outpatient followup. DISCHARGE DISPOSITION: The patient will be discharged in stable condition with guarded prognosis. HISTORY OF PRESENT ILLNESS: This 59-year-old gentleman with a past medical history of multiple medical problems being followed by Dr. Shipley in the outpatient setting was admitted with complaints of left-sided chest pain. The patient was treated in conjunction with Cardiology, myocardial infarction ruled out. The possibility of musculoskeletal pain and pleurisy was considered. The patient improved significantly. Recommended outpatient followup with possible stress test and also possible repeat CT scan as mentioned above regarding the followup of the CT scans otherwise. On exam, vitals are stable. Cardiovascular: S1. S2. Abdomen soft. Nervous system: No focal deficits. DISCHARGE ADVICE AND MEDICATIONS: 1. Diet is cardiac diet. 2. Followup follow up with Dr. Shipley in 1-2 days follow up with Cardiology as recommended. DISCHARGE MEDICATIONS: 1. Ecotrin 81 mg p.o. daily. 2. Zetia 10 mg q.h.s. 3. Lasix 20 mg p.o. daily. 4. Lisinopril 40 mg p.o. daily. 5. Pepcid 20 mg with lunch. 6. Lipitor 40 mg p.o. daily. 7. Tylenol 650 q.4 p.r.n. Once again the patient being discharged in stable condition with guarded prognosis. MMODL / IJN: [id number] /
== END 2019-07-08 11:47 | disposition home or self-care (01) ==
LOC: EC 06:22 → 1SOBS 09:55
PROVIDERS: ADMIT Hospitalist; ATTEND Hospitalist
DX: R07.89 Other chest pain (principal); E66.9 Obesity, unspecified; Z68.32 Body mass index [BMI] 32.0-32.9, adult; R91.1 Solitary pulmonary nodule; E78.5 Hyperlipidemia, unspecified; F17.200 Nicotine dependence, unspecified, uncomplicated; R59.0 Localized enlarged lymph nodes; I10 Essential (primary) hypertension; I45.10 Unspecified right bundle-branch block; K21.9 Gastro-esophageal reflux disease without esophagitis; Z79.82 Long term (current) use of aspirin; Z79.899 Other long term (current) drug therapy; Z90.49 Acquired absence of other specified parts of digestive tract; Z90.5 Acquired absence of kidney; Z83.71 Family history of colonic polyps; Z82.49 Family history of ischemic heart disease and other diseases of the circulatory system
CPT/HCPCS: 96366 ×2; 96376; 96365; 96375; 99285; 36415; 93005; 93306; 85379; 83880; 80061; 80053; 80048; 85652; 83735; 84484; 85025 ×2; 85610; 85730; 86140; 71046; 71275; G0378 ×2; J1200; J1644 ×2; J2930; Q9967

== ENCOUNTER → 2019-08-02 | Outpatient (CLI) | payer MEDICAID ==
--- NOTE | 2019-08-03 04:41 | MR ---
EXAMINATION TYPE: MR chest wo con DATE OF EXAM: 08/02/2019 COMPARISON: Correlation CT 07/07/2019 HISTORY: 59-year-old male Solitary pulmonary nodule / Abn CT TECHNIQUE: 2 coronal sequences were obtained before patient prematurely terminated the exam due to di scomfort and claustrophobia. No contrast was administered. FINDINGS: The images are motion degraded. Suggestion of underlying mediastinal/hilar lymphadenopathy measuring up to 1.2 cm, not as clearly scout luated in the coronal plane with motion on MRI. 8 mm posterior right basilar pulmonary nodule seen on recent CT is beyond the resolution of MRI and a ssessment is further limited due to generalized motion. Suggestion of a couple small cysts within the liver measuring up to 1 cm. IMPRESSION: 1. Motion degraded exam. Furthermore, due to discomfort and claustrophobia, the patient terminated th e study after only 2 coronal sequences. 2. Underlying mediastinal and hilar lymphadenopathy better appreciated on recent CT. 3. Known 8 mm posterior right basilar pulmonary nodule is beyond the resolution of MRI. 4. Appropriate CT follow up recommended.
== END | disposition home or self-care (01) ==
LOC: RADMRIMAIN 07:13
PROVIDERS: ATTEND Family Medicine
DX: R91.1 Solitary pulmonary nodule (principal); R93.89 Abnormal findings on diagnostic imaging of other specified body structures; F40.240 Claustrophobia; Z53.29 Procedure and treatment not carried out because of patient's decision for other reasons
CPT/HCPCS: 71550

== ENCOUNTER → 2019-09-01 | Outpatient (CLI) | payer MEDICAID ==
[~2019-09-01] MED LIST: DOBUTamine DRIP for NUC MED 500 MG in DEXTROSE/WATER 1 250ML.BAG IV ONE
--- NOTE | 2019-09-01 12:39 | P.STRESS ---
- Stress Test Note Stress Test Results/Findings: Exam Performed: dobutamine stress echo Exam Date: 09/01/19 Reason for Exam: CHEST PAIN Height: 6 ft Weight: 111.13 kg Protocol: DOBUTAMINE STRESS ECHO Stage: 4 Duration of Exercise: 11;30 Resting Heart Rate: 66 Resting Blood Pressure: 128/63 Maximum Achieved Heart Rate: 140 Maximum Achieved Blood Pressure: 128/63 85% PMHR: 137 100% PMHR: 161 METS: NA Technologist Comment: Stress Test Results/Findings: This is a 59-year-old gentleman with history of hypertension, hypercholesteremia, family history and smoking being evaluated for symptoms of chest pain or shortness of breath and also palpitations. Stress data: Baseline EKG showed sinus rhythm with normal [place] interval and QRS duration. Blood pressure at rest is 128/63 with pulse rate of 66. Patient walked on the Myles protocol for 11 minutes and 30 seconds achieving a maximal 20-140 with a blood pressure 118/49. EKGs taken during and after the exercise did not reveal any significant changes from the baseline. Echo data: Baseline echo images show normal wall motion and thickening. Exercise echo images at low-dose, high-dose dobutamine showed progressive augmentation of the wall motion and thickening. Final impression: #1. Negative dobutamine stress test #2. Negative dobutamine stress echo.
--- NOTE | 2019-09-04 14:23 | ECHOS ---
Stress Test Results/Findings: Exam Performed: dobutamine stress echo Exam Date: 09/01/19 Reason for Exam: CHEST PAIN Height: 6 ft Weight: 111.13 kg Protocol: DOBUTAMINE STRESS ECHO Stage: 4 Duration of Exercise: 11;30 Resting Heart Rate: 66 Resting Blood Pressure: 128/63 Maximum Achieved Heart Rate: 140 Maximum Achieved Blood Pressure: 128/63 85% PMHR: 137 100% PMHR: 161 METS: NA Technologist Comment: Stress Test Results/Findings: This is a 59-year-old gentleman with history of hypertension, hypercholesteremia, family history and smoking being evaluated for symptoms of chest pain or shortness of breath and also palpitations. Stress data: Baseline EKG showed sinus rhythm with normal [place] interval and QRS duration. Blood pressure at rest is 128/63 with pulse rate of 66. Patient walked on the Myles protocol for 11 minutes and 30 seconds achieving a maximal 20-140 with a blood pressure 118/49. EKGs taken during and after the exercise did not reveal any significant changes from the baseline. Echo data: Baseline echo images show normal wall motion and thickening. Exercise echo images at low-dose, high-dose dobutamine showed progressive augmentation of the wall motion and thickening. Final impression: #1. Negative dobutamine stress test #2. Negative dobutamine stress echo. [facility]
== END | disposition home or self-care (01) ==
LOC: RADNMMAIN 09:40
PROVIDERS: ATTEND Internal Medicine Cardiovascular Disease
DX: R07.9 Chest pain, unspecified (principal)
CPT/HCPCS: 93351; J1250

== ENCOUNTER → 2019-10-06 | Outpatient (CLI) | payer MEDICAID ==
[2019-10-06 08:17] LABS: African American GFR (CKD) >90 (>60 ml/min/1.73 sqM); Blood Urea Nitrogen 19 mg/dL (9-20); Non-African American GFR(CKD) >90 (>60 ml/min/1.73 sqM)
--- NOTE | 2019-10-06 12:18 | CT ---
EXAMINATION TYPE: CT chest w con DATE OF EXAM: 10/06/2019 COMPARISON: CT dated 07/07/2019 HISTORY: Pulmonary nodule CT DLP: 547.1 mGycm. Automated Exposure Control for Dose Reduction was Utilized. TECHNIQUE: CT scan of the thorax is performed following with IV Contrast, patient injected with 100 mL of Isovue 300. FINDINGS: LUNGS: There is a rounded smoothly marginated approximately 8 mm pulmonary nodule in the right lower lobe on series 4 image 48. This demonstrates no interval growth from the prior of 07/07/2019. There is also a stable subpleural 3 mm lateral right upper lobe pulmonary nodule marked on series 4 image 33. Both of these are solid in nature. No new pulmonary nodules. Paraseptal emphysematous changes and mi ld at the lung apices. Minimal multifocal subsegmental atelectasis. MEDIASTINUM: There is decreased in size of the mediastinal adenopathy with a prior aorticopulmonary w indow lymph node measured at 1.5 cm in short axis and now measuring 1.2 cm. Right hilar conglomeratio n of lymph nodes previously measured 1.9 cm in long axis and now measures 1.3 cm in long axis. Subcar inal lymph node previously measured 1.6 cm in short axis and now measures 1.3 cm in short axis. No p ericardial effusion is seen. Few coronary artery calcifications. OTHER: There is a small hernia. 6 mm hypoattenuated hepatic lesion is too small to accurately charact erize but deeply hypoattenuated likely representing a small cyst. Similar-appearing 6 mm hepatic lesi on on image 61. Mild multilevel degenerative changes of the spine. IMPRESSION: Stable right-sided pulmonary nodules in comparison to the exam of 07/07/2019. Follow-up CT in 12 months to reassess stability.
== END ==
LOC: RADCTMAIN 07:37
PROVIDERS: ATTEND Family Medicine
DX: R91.8 Other nonspecific abnormal finding of lung field (principal); Z01.812 Encounter for preprocedural laboratory examination
CPT/HCPCS: 82565; 84520; 71260; 36415; Q9967

== ENCOUNTER → 2019-11-28 | Outpatient (CLI) | payer MEDICAID ==
[2019-11-28 10:16] LABS: Basophils # (A) 0.1 k/uL (0-0.2); Basophils % (A) 2 %; Eosinophils # (A) 0.3 k/uL (0-0.7); Eosinophils % (A) 5 %; HCT 45.3 % (39.0-53.0); HGB 15.3 gm/dL (13.0-17.5); Lymphocytes # (A) 1.7 k/uL (1.0-4.8); Lymphocytes % (A) 28 %; MCH 30.8 pg (25.0-35.0); MCHC 33.8 g/dL (31.0-37.0); MCV 91.4 fL (80.0-100.0); Mean Platelet Volume 8.5; Monocytes # (A) 0.5 k/uL (0-1.0); Monocytes % (A) 7 %; Neutrophils # (A) 3.4 k/uL (1.3-7.7); Neutrophils % (A) 55 %; Platelet Count 184 k/uL (150-450); RBC 4.96 m/uL (4.30-5.90); RDW 12.8 % (11.5-15.5); WBC 6.2 k/uL (3.8-10.6)
[2019-11-28 16:15] LABS: Albumin 4.4 g/dL (3.80-4.90); Albumin/Globulin Ratio 2.32 (1.60-3.17); Anion Gap 8.4 mmol/L (4.00-12.00); BUN/Creat Ratio 21.11 Ratio (12.00-20.00); Carbon Dioxide 23.6 mmol/L (21.6-31.8); Chol/HDL Ratio 3.43; Globulin 1.9 g/dL (1.6-3.3); LDL Cholesterol,Calculated 67.4 mg/dL (0.0-131.0); Non-African American GFR(CKD) 93.2 (60.0-200.0); Potassium 4.6 mmol/L (3.5-5.5); Total Bilirubin 0.6 mg/dL (0.2-1.2); Total Protein 6.3 g/dL (6.2-8.2); VLDL Calculation 17.6 mg/dL (5.00-40.00)
== END | disposition home or self-care (01) ==
LOC: LABWHC1 09:16
DX: I10 Essential (primary) hypertension (principal); E66.09 Other obesity due to excess calories; K21.0 Gastro-esophageal reflux disease with esophagitis; E78.2 Mixed hyperlipidemia; R60.9 Edema, unspecified
CPT/HCPCS: 36415; 80053; 80061; 82550; 84443; 85025

== ENCOUNTER → 2020-07-15 | Outpatient (CLI) | payer MEDICAID ==
[2020-07-15 10:16] LABS: Basophils # (A) 0.1 k/uL (0-0.2); Basophils % (A) 1 %; Eosinophils # (A) 0.2 k/uL (0-0.7); Eosinophils % (A) 3 %; HGB 15.4 gm/dL (13.0-17.5); Lymphocytes # (A) 1.7 k/uL (1.0-4.8); Lymphocytes % (A) 24 %; MCH 30.8 pg (25.0-35.0); MCHC 33.4 g/dL (31.0-37.0); MCV 92.3 fL (80.0-100.0); Monocytes # (A) 0.5 k/uL (0-1.0); Monocytes % (A) 6 %; Neutrophils # (A) 4.5 k/uL (1.3-7.7); Neutrophils % (A) 63 %; Platelet Count 191 k/uL (150-450); RBC 4.99 m/uL (4.30-5.90); WBC 7.2 k/uL (3.8-10.6)
[2020-07-15 18:22] LABS: African American GFR (CKD) 107.2 (60.0-200.0); Albumin 4.2 g/dL (3.80-4.90); Albumin/Globulin Ratio 1.83 (1.60-3.17); BUN/Creat Ratio 17.78 Ratio (12.00-20.00); Calcium 9.2 mg/dL (8.7-10.3); Chol/HDL Ratio 3.88; Globulin 2.3 g/dL (1.6-3.3); LDL Cholesterol,Calculated 71.8 mg/dL (0.0-131.0); Non-African American GFR(CKD) 92.5 (60.0-200.0); Potassium 4.5 mmol/L (3.5-5.5); Total Bilirubin 0.7 mg/dL (0.2-1.2); Total Protein 6.5 g/dL (6.2-8.2); VLDL Calculation 23.2 mg/dL (5.00-40.00)
== END | disposition home or self-care (01) ==
LOC: LABWHC1 08:59
PROVIDERS: ATTEND Family Medicine
DX: I10 Essential (primary) hypertension (principal); E78.2 Mixed hyperlipidemia; E55.9 Vitamin D deficiency, unspecified; R60.9 Edema, unspecified; E66.09 Other obesity due to excess calories; K57.32 Diverticulitis of large intestine without perforation or abscess without bleeding
CPT/HCPCS: 36415; 80053; 80061; 82306; 82550; 84153; 84443; 85025

== ENCOUNTER → 2020-09-30 | Outpatient (CLI) | payer MEDICAID ==
--- NOTE | 2020-09-30 10:03 | CT ---
EXAMINATION TYPE: CT chest w con DATE OF EXAM: 09/30/2020 COMPARISON: 10/06/2019 HISTORY: lung nodule CT DLP: 531.3 mGycm Automated exposure control for dose reduction was used. CONTRAST: CT scan of the chest is performed with IV Contrast, patient injected with 100 mL of Isovue 300. FINDINGS: LUNGS: Stable right millimeter pulmonary nodule right lower lobe. Seen best on image 47. Tiny subpleu ral nodule right upper lobe image 31 measures 1 mm versus 3 mm previously. I do not see evidence for new pulmonary nodule. There is no evidence for mass or infiltrate. No pleural effusion or volume loss demonstrated. MEDIASTINUM: There are no greater than 1 cm hilar or mediastinal lymph nodes. No pericardial effusi on is seen. Thoracic aorta is of normal caliber. The heart is not enlarged. UPPER ABDOMEN: No significant abnormality appreciated. OTHER: No additional significant abnormality is seen. IMPRESSION: Stable right lower lobe pulmonary nodule and right upper lobe pulmonary nodule is smaller in size. St ability over a two-year timeframe should be documented radiographically.
== END | disposition home or self-care (01) ==
LOC: RADCTMAIN 09:08
PROVIDERS: ATTEND Family Medicine
DX: R91.8 Other nonspecific abnormal finding of lung field (principal)
CPT/HCPCS: 71260; Q9967

== ENCOUNTER → 2021-04-10 | Outpatient (CLI) | payer MEDICAID ==
[2021-04-10 14:22] LABS: HCT 44.3 % (39.6-50.0); HGB 14.9 g/dL (13.0-17.0); MCH 31.3 pg (27.0-32.0); MCHC 33.6 g/dL (32.0-37.0); MCV 93.1 fL (80.0-97.0); Mean Platelet Volume 10.7 fL (9.5-12.2); Platelet Count 214 X 10*3/uL (140-440); RBC 4.76 X 10*6/uL (4.40-5.60); RDW 12.7 % (11.5-14.5); WBC 6.01 X 10*3/uL (4.50-10.00)
[2021-04-10 22:21] LABS: African American GFR (CKD) 107.2 (60.0-200.0); Albumin 4.2 g/dL (3.80-4.90); Albumin/Globulin Ratio 1.75 (1.60-3.17); Anion Gap 6.8 mmol/L (4.00-12.00); BUN/Creat Ratio 25.56 Ratio (12.00-20.00); Calcium 9.2 mg/dL (8.7-10.3); Carbon Dioxide 24.2 mmol/L (21.6-31.8); Chol/HDL Ratio 3.8; Globulin 2.4 g/dL (1.6-3.3); LDL Cholesterol,Calculated 65.8 mg/dL (0.0-131.0); Non-African American GFR(CKD) 92.5 (60.0-200.0); Potassium 4.4 mmol/L (3.5-5.5); Total Bilirubin 0.6 mg/dL (0.2-1.2); Total Protein 6.6 g/dL (6.2-8.2); VLDL Calculation 18.2 mg/dL (5.00-40.00)
== END | disposition home or self-care (01) ==
LOC: LABWHC1 08:24
PROVIDERS: ATTEND Family Medicine
DX: Z12.5 Encounter for screening for malignant neoplasm of prostate (principal); E78.2 Mixed hyperlipidemia; E55.9 Vitamin D deficiency, unspecified; R60.9 Edema, unspecified; E66.09 Other obesity due to excess calories; K57.32 Diverticulitis of large intestine without perforation or abscess without bleeding; I10 Essential (primary) hypertension
CPT/HCPCS: 36415; 80053; 80061; 82306; 82550; 84153; 84443; 85027

== ENCOUNTER → 2021-11-06 | Outpatient (CLI) | payer MEDICAID ==
--- NOTE | 2021-11-06 11:09 | US ---
EXAMINATION TYPE: US abdomen complete DATE OF EXAM: 11/06/2021 COMPARISON: NONE CLINICAL HISTORY: 61-year-old male [id number] with diverticulitis OF LG INT W/O PERF OR ABSCESS,[id number] RT U PPER Q. TECHNIQUE: Multiple sonographic images of the abdomen are obtained. FINDINGS: EXAM MEASUREMENTS: Liver Length: 17.5 cm Gallbladder Wall: 0.3 cm CBD: 0.5 cm Spleen: 12.5 cm Right Kidney: 12.1 x 4.4 x 4.9 cm Left Kidney: 13.5 x 4.5 x 4.3 cm Patient of large body habitus with extensive overlying bowel gas. 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 Pancreas: Obscured by bowel gas Liver: Echogenic parenchyma. Left lobe mostly obscured by overlying bowel gas, cyst noted measuring 1 .1 x 1.0 x 1.1 cm. Gallbladder: A small gallstone measures 6 mm. Evidence for sonographic Garrison's sign: no CBD: wnl as seen Spleen: wnl Right Kidney: Somewhat obscured by overlying bowel gas Left Kidney: somewhat limited visualization due to overlying bowel, patient states he had part of ki dney removed due to an infection in his youth, measures prominent in size. Upper IVC: wnl Abd Aorta: wnl as seen, partially obscure by overlying bowel, IMPRESSION: 1. A small 6 mm gallstone. No ancillary imaging findings of acute cholecystitis. No biliary duct dila tation. 2. Borderline hepatomegaly (17.5 cm) with echogenic liver parenchyma suggesting hepatic steatosis. In cidental benign 1.1 cm left liver lobe cyst. 3. Limitations due to patient body habitus and bowel gas shadowing.
== END | disposition home or self-care (01) ==
LOC: RADUSWWP 07:15
PROVIDERS: ATTEND Family Medicine
DX: K80.20 Calculus of gallbladder without cholecystitis without obstruction (principal); R16.0 Hepatomegaly, not elsewhere classified; K76.89 Other specified diseases of liver; K57.32 Diverticulitis of large intestine without perforation or abscess without bleeding
CPT/HCPCS: 76700

== ENCOUNTER → 2021-12-03 | Outpatient (CLI) | payer MEDICAID ==
[2021-12-03 14:35] LABS: HGB 15.5 g/dL (13.0-17.0); MCH 30.8 pg (27.0-32.0); MCHC 33.7 g/dL (32.0-37.0); MCV 91.3 fL (80.0-97.0); Mean Platelet Volume 10.5 fL (9.5-12.2); Platelet Count 210 X 10*3/uL (140-440); RBC 5.04 X 10*6/uL (4.40-5.60); RDW 12.9 % (11.5-14.5); WBC 7.01 X 10*3/uL (4.50-10.00)
[2021-12-03 16:57] LABS: ALT 66 U/L (10-49); AST 34 U/L (14-35); African American GFR (CKD) 106.7 (60.0-200.0); Albumin 4.2 g/dL (3.8-4.9); Alkaline Phosphatase 61 U/L (41-126); BUN/Creat Ratio 17.21 Ratio (12.00-20.00); Blood Urea Nitrogen 15.4 mg/dL (9.0-27.0); Calcium 9.1 mg/dL (8.7-10.3); Carbon Dioxide 21.8 mmol/L (20.0-27.5); Chloride 106 mmol/L (96-109); Globulin 2.8 g/dL (1.6-3.3); Glucose 169 mg/dL (70-110); Non-African American GFR(CKD) 92.1 (60.0-200.0); Potassium 4.3 mmol/L (3.5-5.5); Sodium 140 mmol/L (135-145)
[2021-12-04 03:17] LABS: Chol/HDL Ratio 3.68 Ratio; LDL Cholesterol,Calculated 77.5 mg/dL (0.0-131.0)
== END | disposition home or self-care (01) ==
LOC: LABWHC1 10:20
PROVIDERS: ATTEND Family Medicine
DX: Z12.5 Encounter for screening for malignant neoplasm of prostate (principal); I10 Essential (primary) hypertension; E78.2 Mixed hyperlipidemia; E55.9 Vitamin D deficiency, unspecified; R60.9 Edema, unspecified; E66.09 Other obesity due to excess calories; K57.32 Diverticulitis of large intestine without perforation or abscess without bleeding; R10.11 Right upper quadrant pain
CPT/HCPCS: 36415; 80053; 80061; 82306; 84153; 85027

== ENCOUNTER 2022-02-27 10:15 | Day surgery (SDC) | payer MEDICAID ==
[2022-02-25 16:02] VITALS: BMI 33.9
--- NOTE | 2022-02-27 07:30 | P.GSHP ---
History of Present Illness H&P Date: 02/27/22 Chief Complaint: Chronic cholecystitis 61-year-old male here today for elective cholecystectomy. Last seen in the office in January. Patient has had complaints of right upper quadrant pain. The last bad episode was in October. Some nausea but no vomiting. No change in th e color of his skin urine or stool. ALT and AST were slightly elevated. 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 History of Any Multi-Drug Resistant Organisms: None Reported Past Surgical History: Appendectomy, Hernia Repair Additional Past Surgical History / Comment(s): L partial nephrectomy, colonoscopy with polypectomy, R inguinal hernia repair, bilateral hydrocele surgery, vas deferens repair, cystoscopy, hemorrhoidectomy. Past Anesthesia/Blood Transfusion Reactions: Malignant Hyperthermia Additional Past Anesthesia/Blood Transfusion Reaction / Comment(s): MALIGNANT HYPERTHERMIA Smoking Status: Former smoker - Past Family History Father Family Medical History: Coronary Artery Disease (CAD), Hyperlipidemia Additional Family Medical History / Comment(s): 4 vessel CABG at age 55 and a pacer at age 57yrs. Father at the age of 87yrs. Mother Family Medical History: Liver Disease Additional Family Medical History / Comment(s): colon polyps. Medications and Allergies Home Medications Medication Instructions Recorded Confirmed Type Aspirin 81 mg PO DAILY 08/02/14 02/25/22 History Ezetimibe 10 mg PO HS 07/07/19 02/25/22 History Famotidine [Pepcid] 20 mg PO W/LUNCH 07/07/19 02/25/22 History Furosemide [Lasix] 20 mg PO DAILY 07/07/19 02/25/22 History lisinopriL 40 mg PO DAILY 07/07/19 02/25/22 History Acetaminophen Tab [Tylenol] 650 mg PO Q4HR PRN tab 07/08/19 02/25/22 Rx Atorvastatin [Lipitor] 40 mg PO DAILY #90 tab 07/08/19 02/25/22 Rx Allergies Allergy/AdvReac Type Severity Reaction Status Date / Time Iodinated Contrast Media Allergy UNKNOWN-OK Verified 02/25/22 15:47 [Iodinated Contrast Media - WITH IV Dye] PREMEDS anesthetics (unknown) Allergy see Uncoded 02/25/22 15:47 comments Surgical - Exam Physical exam: General: Well-developed, well-nourished HEENT: Normocephalic, sclerae nonicteric Abdomen: Nontender, nondistended Extremities: No edema Neuro: Alert and oriented Assessment and Plan (1) Chronic cholecystitis Narrative/Plan: 61-year-old male with chronic cholecystitis. We'll proceed with laparoscopic, possible open cholecystectomy at this time. Risks of bleeding, infection, bile leak, bile duct injury, retained common bile duct stone, trocar injury, conversion to an open procedure, hernia, anesthesia related complications were reviewed. The patient understands and wishes to proceed. Status: Acute Code(s): K81.1 - CHRONIC CHOLECYSTITIS SNOMED Code(s): 92864348
[~2022-02-27 10:15] MED LIST changes: +ACETAMINOPHEN TAB 500 MG TAB PO PRN; +DEXAMETHASONE SOD PHOSPHATE 4 MG/ML 1 ML VIAL IV ONE; -DOBUTamine DRIP for NUC MED 500 MG in DEXTROSE/WATER 1 250ML.BAG IV ONE; +HEPARIN SODIUM,PORCINE/PF 5,000 UNIT/0.5 ML SYRINGE SQ PRN; +LACTATED RINGERS 1,000 ML IV SCH; +MIDAZOLAM 2 MG/2 ML VIAL IV PRN; +ONDANSETRON 4 MG/2 ML VIAL IVP ONE; +SCOPOLAMINE 1 MG/72 HR PATCH TRANSDERM ONE
[2022-02-27 10:45] VITALS: TEMP 97.4
[2022-02-27] MEDS ORDERED: HEPARIN SODIUM,PORCINE/PF 5,000 UNIT/0.5 ML SYRINGE SQ ONE (10:56)
[2022-02-27] MEDS ORDERED: ACETAMINOPHEN TAB 500 MG TAB ONE (10:56)
[2022-02-27 10:57] LABS: Glucose,Whole Blood 157 mg/dL (75-99)
[2022-02-27] MEDS ORDERED: MIDAZOLAM 2 MG/2 ML VIAL ONE (13:13)
[2022-02-27] MEDS ORDERED: PROPOFOL 10 MG/ML 20 ML VIAL IV ONE (13:13)
[2022-02-27] MEDS ORDERED: KETAMINE 10 MG/ML 20 ML VIAL ONE (13:13)
[2022-02-27] MEDS ORDERED: LIDOCAINE 1% INJ 10MG/ML (20 ML MDV) ONE (13:13)
[2022-02-27] MEDS ORDERED: ROCURONIUM 10 MG/ML (5 ML VIAL) IV ONE (13:13)
[2022-02-27] MEDS ORDERED: NEOSTIGMINE 1 MG/ML 10 ML VIAL ONE (13:13)
[2022-02-27] MEDS ORDERED: GLYCOPYRROLATE 0.2 MG/ML 2 ML VIAL ONE (13:13)
[2022-02-27] MEDS ORDERED: fentaNYL (PF) 50 MCG/ML 2 ML AMP ONE (13:13)
[2022-02-27] MEDS ORDERED: BUPIVACAINE (PF) 0.25% 30 ML VIAL SQ ONE (13:32)
[2022-02-27] MEDS ORDERED: LACTATED RINGERS 1,000 ML IV ONE (14:16)
--- NOTE | 2022-02-27 14:26 | P.OP ---
Date of Procedure: 02/27/22 Procedure(s) Performed: PREOPERATIVE DIAGNOSIS: Chronic cholecystitis POSTOPERATIVE DIAGNOSIS: Same PROCEDURE: Laparoscopic cholecystectomy SURGEON: Shanell EBL: Ian Crain ANESTHESIA: Gen. COMPLICATIONS: None OPERATIVE PROCEDURE: The patient was brought and placed on the operating room table in the supine position. The patient was placed under general anesthesia at that time. The abdomen was prepped and draped in the usual sterile fashion. A small vertical infraumbilical incision was made. The fascia was grasped with the Shannan forceps. The fascia was retracted anteriorly. The Veress needle was advanced into the peritoneal cavity. The saline drop test was normal. Insufflation took place up to 15 mmHg. A 5 mm optical trocar was advanced and the peritoneal cavity. 2 additional 5 mm trochars were placed in the right upper quadrant under direct visualization. A 12 mm trocar was advanced into the epigastric incision site. There were adhesions between the omentum and the liver edge which were lysed using electrocautery and blunt dissection. The gallbladder was then well visualized. It was mildly inflamed. The gallbladder was retracted superiorly and laterally. The peritoneum overlying the infundibulum was bluntly dissected. The patient's cystic duct was visualized. It was somewhat dilated. The junction between the cystic duct common and hepatic duct was identified. The critical view of safety was achieved after blunt dissection. The cystic duct was then divided after placement of a 2-0 Ethibond stitch which was tied down using a timeout device and also a clip on both the specimen and the patient's side. The cystic artery was identified and clipped as well. A small vessel was seen along the gallbladder fossa and clipped as well. The gallbladder was then removed from the liver bed using electrocautery. The gallbladder was then removed from the epigastric trocar site with an Endo Catch bag. The gallbladder fossa was irrigated with saline. There was no evidence of any bleeding or biliary drainage seen. The fascia at the 12 millimeter site was closed using a [id number] 0 Vicryl stitch. The trochars were then removed. The skin at all 4 sites was closed using a 4-0 Monocryl stitch. Skin glue was utilized on the incision sites. At the end of this procedure the sponge and needle counts were correct. DISPOSITION: Stable to the recovery room
[2022-02-27] MEDS: HYDROmorphone 0.5 MG/0.5 ML SYRINGE IVP PRN ×2 (15:05→15:28)
[2022-02-27 15:45] VITALS: RESP 16
[2022-02-27 16:27] VITALS: BP 144/82; PULSE 69
[2022-02-27] MEDS ORDERED: ACETAMINOPHEN TAB 325 MG TAB PO SCH (18:00)
[2022-02-27] MEDS ORDERED: IBUPROFEN 600 MG TAB PO SCH (21:00)
== END 2022-02-27 17:23 | disposition home or self-care (01) ==
LOC: OR 10:15
PROVIDERS: ATTEND Surgery
DX: K81.1 Chronic cholecystitis (principal); K21.9 Gastro-esophageal reflux disease without esophagitis; E78.5 Hyperlipidemia, unspecified; I10 Essential (primary) hypertension; N28.9 Disorder of kidney and ureter, unspecified; Z87.891 Personal history of nicotine dependence; Z82.49 Family history of ischemic heart disease and other diseases of the circulatory system; Z91.041 Radiographic dye allergy status; Z79.899 Other long term (current) drug therapy
CPT/HCPCS: 47562; 88304; J2250; J1100; J2710; J0690; J2405; J2001; J3010; J2704; J1170; J1644

== ENCOUNTER 2022-06-23 07:18 | Day surgery (SDC) | payer MEDICAID ==
[2022-06-18 15:04] VITALS: BMI 34.5
[~2022-06-23 07:18] MED LIST changes: -ACETAMINOPHEN TAB 500 MG TAB PO PRN; -DEXAMETHASONE SOD PHOSPHATE 4 MG/ML 1 ML VIAL IV ONE; -HEPARIN SODIUM,PORCINE/PF 5,000 UNIT/0.5 ML SYRINGE SQ PRN; +LIDOCAINE 1% (10MG/ML) FOR IV START INTRADERMA PRN; -MIDAZOLAM 2 MG/2 ML VIAL IV PRN; -ONDANSETRON 4 MG/2 ML VIAL IVP ONE; -SCOPOLAMINE 1 MG/72 HR PATCH TRANSDERM ONE
[2022-06-23 07:40] VITALS: RESP 16; TEMP 98.2
[2022-06-23 08:00] LABS: Glucose,Whole Blood 180 mg/dL (70-110)
[2022-06-23] MEDS ORDERED: PROPOFOL 10 MG/ML 20 ML VIAL IV ONE (08:03)
--- NOTE | 2022-06-23 08:09 | P.GSHP ---
History of Present Illness H&P Date: 06/23/22 Chief Complaint: Colon cancer screening 62-year-old male here today for colonoscopy. Last colonoscopy about 8 years ago. Patient with personal history of colon polyps. No family history of colon cancer. No bowel complaints. 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 constipation, borderline diabetic-diet control, History of Any Multi-Drug Resistant Organisms: None Reported Past Surgical History: Appendectomy, Cholecystectomy, Hernia Repair Additional Past Surgical History / Comment(s): L partial nephrectomy, colonosc opy with polypectomy, R inguinal hernia repair, bilateral hydrocele surgery, vas deferens repair, cystoscopy, hemorrhoidectomy. Past Anesthesia/Blood Transfusion Reactions: Malignant Hyperthermia, Postoperative Nausea & Vomiting (PONV) Additional Past Anesthesia/Blood Transfusion Reaction / Comment(s): MALIGNANT HYPERTHERMIA, dx age 26, surgery for hydrocele done at [facility] Smoking Status: Former smoker - Past Family History Father Family Medical History: Coronary Artery Disease (CAD), Hyperlipidemia Additional Family Medical History / Comment(s): 4 vessel CABG at age 55 and a pacer at age 57yrs. Father at the age of 87yrs. Mother Family Medical History: No Reported History Additional Family Medical History / Comment(s): colon polyps. Medications and Allergies Home Medications Medication Instructions Recorded Confirmed Type Aspirin 81 mg PO DAILY 08/02/14 06/23/22 History Ezetimibe 10 mg PO HS 07/07/19 06/23/22 History Famotidine [Pepcid] 20 mg PO W/SUPPER 07/07/19 06/23/22 History Furosemide [Lasix] 20 mg PO DAILY 07/07/19 06/23/22 History Cinnamon Bark [Cinnamon] 1,000 mg PO DAILY 02/27/22 06/23/22 History Garlic 1,000 mg PO DAILY 02/27/22 06/23/22 History [place]-3 Fatty Acids/Fish Oil [Fish 2 tab PO PC-LUNCH 02/27/22 06/23/22 History Oil 1,000 mg Softgel] Atorvastatin [Lipitor] 40 mg PO 2000 06/18/22 06/23/22 History Cholecalciferol [Vitamin D3 (25 25 mcg PO DAILY 06/18/22 06/23/22 History Mcg = 1000 Iu)] Losartan [Cozaar] 50 mg PO DAILY 06/18/22 06/23/22 History Montelukast [Singulair] 10 mg PO DAILY PRN 06/18/22 06/23/22 History Allergies Allergy/AdvReac Type Severity Reaction Status Date / Time Iodinated Contrast Media Allergy UNKNOWN-OK Verified 06/23/22 07:41 [Iodinated Contrast Media - WITH IV Dye] PREMEDS anesthetics (unknown) Allergy see Uncoded 06/23/22 07:41 comments Surgical - Exam Vital Signs Temp Pulse Resp BP Pulse Ox 98.2 F 76 16 140/84 95 06/23/22 07:38 06/23/22 07:38 06/23/22 07:38 06/23/22 07:38 06/23/22 07:38 Physical exam: General: Well-developed, well-nourished HEENT: Normocephalic, sclerae nonicteric Abdomen: Nontender, nondistended Extremities: No edema Neuro: Alert and oriented Results - Labs Abnormal Lab Results - Last 24 Hours (Table) 06/23/22 Range/Units 07:53 POC Glucose (mg/dL) 180 H (70-110) mg/dL Assessment and Plan (1) Colon cancer screening Narrative/Plan: Will proceed with colonoscopy at this time Current Visit: Yes Status: Acute Code(s): Z12.11 - ENCOUNTER FOR SCREENING FOR MALIGNANT NEOPLASM OF COLON SNOMED Code(s): 059402501
--- NOTE | 2022-06-23 08:31 | P.PCN ---
Date of Procedure: 06/23/22 Procedure(s) Performed: PREOPERATIVE DIAGNOSIS: Colon cancer screening, history of polyps POSTOPERATIVE DIAGNOSIS: Descending colon polyp, diverticulosis PROCEDURE: Colonoscopy with snare polypectomy ANESTHESIA: MAC SURGEON: Spencer Reece M.D. SPECIMENS: Descending colon polyp ENDOSCOPIC PROCEDURE: The patient was placed on the endoscopy table in the left decubitus position. The Olympus colonoscope was inserted into the anus and passed under direct visualization to the base of the cecum. The appendiceal orifice was visualized. From that point the scope was slowly withdrawn inspecting all surfaces carefully. There were no neoplastic inflammatory or polypoid lesions throughout the cecum, ascending, and transverse colon. In the descending colon a small polyp was seen and removed with the snare technique. The remainder of the descending sigmoid and rectum appeared normal. Extensive left-sided diverticulosis. Digital rectal examination was normal. The patient was taken to the recovery room in stable condition per anesthesia guidelines. RECOMMENDATIONS: Await biopsy results. Repeat colonoscopy in 5 years.
[2022-06-23] MEDS ORDERED: ALBUTEROL NEBULIZED 2.5 MG/3 ML INHALATION ONE (08:55)
[2022-06-23 09:25] VITALS: BP 107/78; PULSE 94
== END 2022-06-23 09:48 | disposition home or self-care (01) ==
LOC: ORWHC2ENDO 07:18
PROVIDERS: ATTEND Surgery
DX: Z12.11 Encounter for screening for malignant neoplasm of colon (principal); K57.30 Diverticulosis of large intestine without perforation or abscess without bleeding; Z86.010 Personal history of colon polyps; I10 Essential (primary) hypertension; E11.69 Type 2 diabetes mellitus with other specified complication; E78.5 Hyperlipidemia, unspecified; N28.9 Disorder of kidney and ureter, unspecified; Z91.041 Radiographic dye allergy status; Z90.49 Acquired absence of other specified parts of digestive tract; Z82.49 Family history of ischemic heart disease and other diseases of the circulatory system; Z83.79 Family history of other diseases of the digestive system; Z88.4 Allergy status to anesthetic agent; Z79.82 Long term (current) use of aspirin; Z79.899 Other long term (current) drug therapy; Z87.891 Personal history of nicotine dependence; Z83.71 Family history of colonic polyps
CPT/HCPCS: 88305; 45385; J2704

== ENCOUNTER → 2022-06-27 | Outpatient (CLI) | payer MEDICAID ==
[2022-06-27 12:04] LABS: ALT 71 U/L (10-49); AST 29 U/L (14-35); African American GFR (CKD) 105.7 (60.0-200.0); Albumin 4.3 g/dL (3.8-4.9); Albumin/Globulin Ratio 1.87 (1.60-3.17); Alkaline Phosphatase 60 U/L (41-126); Blood Urea Nitrogen 13.5 mg/dL (9.0-27.0); Calcium 9.3 mg/dL (8.7-10.3); Carbon Dioxide 25.6 mmol/L (20.0-27.5); Chloride 105 mmol/L (96-109); Chol/HDL Ratio 3.67 Ratio; Creatine Kinase 291 U/L (35-257); Globulin 2.3 g/dL (1.6-3.3); Glucose 185 mg/dL (70-110); LDL Cholesterol,Calculated 73.8 mg/dL (0.0-131.0); Non-African American GFR(CKD) 91.2 (60.0-200.0); Potassium 4.4 mmol/L (3.5-5.5); Sodium 141 mmol/L (135-145); Total Protein 6.6 g/dL (6.2-8.2)
[2022-06-27 13:42] LABS: Basophils # (A) 0.07 X 10*3/uL (0.00-0.10); Basophils % (A) 1.2 %; Eosinophils % (A) 5.2 %; HCT 43.8 % (39.6-50.0); HGB 14.9 g/dL (13.0-17.0); Immature Grans, Automated 0.3 %; Lymphocytes # (A) 2.01 X 10*3/uL (0.90-5.00); Lymphocytes % (A) 34.8 %; MCH 30.8 pg (27.0-32.0); MCV 90.7 fL (80.0-97.0); Mean Platelet Volume 10.6 fL (9.5-12.2); Monocytes # (A) 0.52 X 10*3/uL (0.20-1.00); NRBC Per 100 WBC 0 /100 WBCS (0.0-0.0); Neutrophils # (A) 2.86 X 10*3/uL (1.80-7.70); Neutrophils % (A) 49.5 %; Platelet Count 216 X 10*3/uL (140-440); RBC 4.83 X 10*6/uL (4.40-5.60); RDW 12.7 % (11.5-14.5); WBC 5.78 X 10*3/uL (4.50-10.00)
== END | disposition home or self-care (01) ==
LOC: LABWHC1 08:14
PROVIDERS: ATTEND Family Medicine
DX: Z12.5 Encounter for screening for malignant neoplasm of prostate (principal); I10 Essential (primary) hypertension; E66.09 Other obesity due to excess calories; R60.9 Edema, unspecified; E78.2 Mixed hyperlipidemia; E55.9 Vitamin D deficiency, unspecified
CPT/HCPCS: 36415; 80053; 80061; 82306; 82550; 84153; 84443; 85025

== ENCOUNTER → 2023-02-04 | Outpatient (CLI) | payer MEDICAID ==
--- NOTE | 2023-02-04 10:36 | CT ---
EXAMINATION TYPE: CT heart w calcium score DATE OF EXAM: 02/04/2023 COMPARISON: CT chest 09/30/2020 HISTORY: Z82.[address] DLP: 98.8 mGycm Automated exposure control for dose reduction was used. CT CALCIUM SCORING Coronary calcium is a marker for plaque (fatty deposits) in a blood vessel or atherosclerosis (harden ing of the arteries). The presence and amount of calcium detected in a coronary artery by the CT sca n, indicates the presence and amount of atherosclerotic plaque. These calcium deposits appear years before the development of heart disease symptoms such as chest pain and shortness of breath. A calcium score is computed for each of the coronary arteries based upon the volume and density of th e calcium deposits. This can be referred to as your calcified plaque burden. It does not correspond directly to the percentage of narrowing in the artery but does correlate with the severity of the un derlying coronary atherosclerosis. PROCEDURE TECHNIQUE - Prospective Gating was used. Slice thickness: 3mm. Density threshold (HU): 130, Pixel threshold: 3, Algorithm: discrete. RESULTS Region: LM Calcium Score ([place]): 0 Volume (mm3): 0 Mass (g): 0 Region: RCA Calcium Score ([place]): 0 Volume (mm3): 0 Mass (g): 0 Region: LAD Calcium Score ([place]): 0 Volume (mm3): 0 Mass (g): 0 Region: CX Calcium Score ([place]): 0 Volume (mm3): 0 Mass (g): 0 Region: PDA Calcium Score ([place]): 0 Volume (mm3): 0 Mass (g): 0 Total: Calcium Score ([place]): 0 Volume (mm3): 0 Mass (g): 0 TOTAL CALCIUM SCORE: 0 Other findings: Tiny aortic valvular calcification noted. Small hiatal hernia. IMPRESSION: Calcium Score: 0 Implication: No identifiable plaque. Risk of Coronary Artery Disease: Very low, generally less than 5%. CALCIUM SCORE IMPLICATION RISK OF C ORONARY ARTERY DISEASE 0 No identifiable plaque Very low, generally less than 5% 1-10 Minimal identifiable plaque Very unlikely, less than 10% 11-100 Definite, at least mild atherosclerotic plaque Mild or m inimal coronary narrowings likely 101-400 Definite, at least moderate atherosclerotic plaque Mild coronary ar neeraj disease highly likely, significant narrowing possible 401 or Higher Extensive atherosclerotic plaque High lik elihood of at least one significant coronary narrowing
== END | disposition home or self-care (01) ==
LOC: RADCTMAIN 09:22
PROVIDERS: ATTEND Family Medicine
DX: I25.10 Atherosclerotic heart disease of native coronary artery without angina pectoris (principal); I10 Essential (primary) hypertension; E11.65 Type 2 diabetes mellitus with hyperglycemia; E78.2 Mixed hyperlipidemia; Z82.49 Family history of ischemic heart disease and other diseases of the circulatory system
CPT/HCPCS: 75571

== ENCOUNTER → 2023-09-02 | Outpatient (CLI) | payer MEDICAID ==
[2023-09-02 16:38] LABS: Basophils # (A) 0.07 X 10*3/uL (0.00-0.10); Basophils % (A) 1.2 %; Eosinophils # (A) 0.26 X 10*3/uL (0.04-0.35); Eosinophils % (A) 4.4 %; HCT 44.9 % (39.6-50.0); HGB 15.1 d/dL (13.0-17.0); Lymphocytes # (A) 2.13 X 10*3/uL (0.90-5.00); Lymphocytes % (A) 35.8 %; MCH 30.8 pg (27.0-32.0); MCHC 33.6 d/dL (32.0-37.0); MCV 91.4 FL (80.0-97.0); Mean Platelet Volume 10.3 FL (9.5-12.2); Monocytes # (A) 0.58 X 10*3/uL (0.20-1.00); Monocytes % (A) 9.7 %; NRBC Per 100 WBC 0 X 10*3/uL (0.00-0.01); Neutrophils # (A) 2.89 X 10*3/uL (1.80-7.70); Neutrophils % (A) 48.6 %; Platelet Count 195 X 10*3/uL (140-440); RBC 4.91 X 10*6/uL (4.40-5.60); RDW 12.6 % (11.5-14.5); WBC 5.95 X 10*3/uL (4.50-10.00)
[2023-09-02 18:48] LABS: ALT 63 U/L (10-49); AST 35 U/L (14-35); Albumin 4.3 d/dL (3.8-4.9); Albumin/Globulin Ratio 1.95 Ratio (1.60-3.17); Alkaline Phosphatase 63 U/L (41-126); BUN/Creat Ratio 18.89 Ratio (12.00-20.00); Calcium 9.1 mg/dL (8.7-10.3); Carbon Dioxide 24.6 mmol/L (21.6-31.8); Chloride 105 mmol/L (96-109); Creatine Kinase 497 U/L (35-257); Globulin 2.2 d/dL (1.6-3.3); Glucose 195 mg/dL (70-110); Potassium 4.3 mmol/L (3.5-5.5); Prostate Specific Antigen 0.76 ng/mL (0.000-4.500); Sodium 142 mmol/L (135-145); Total Bilirubin 0.7 mg/dL (0.3-1.2); Total Protein 6.5 d/dL (6.2-8.2)
[2023-09-02 19:52] LABS: Microalbumin Creatinine Ratio <6 mg/g Cr (0-30)
== END | disposition home or self-care (01) ==
LOC: LABWHC1 08:25
PROVIDERS: ATTEND Family Medicine
DX: I10 Essential (primary) hypertension (principal); E78.2 Mixed hyperlipidemia; K21.9 Gastro-esophageal reflux disease without esophagitis; E55.9 Vitamin D deficiency, unspecified
CPT/HCPCS: 36415; 80053; 80061; 82043; 82306; 82550; 82570; 84153; 84443; 85025

== ENCOUNTER → 2024-03-06 | Outpatient (CLI) | payer MEDICAID ==
[2024-03-06 11:21] LABS: Basophils # (A) 0.08 X 10*3/uL (0.00-0.10); Basophils % (A) 1.2 %; Eosinophils # (A) 0.23 X 10*3/uL (0.04-0.35); Eosinophils % (A) 3.4 %; HCT 44.8 % (39.6-50.0); HGB 15.2 g/dL (13.0-17.0); Lymphocytes # (A) 2.16 X 10*3/uL (0.90-5.00); Lymphocytes % (A) 32.3 %; MCH 31.4 pg (27.0-32.0); MCHC 33.9 g/dL (32.0-37.0); MCV 92.6 FL (80.0-97.0); Mean Platelet Volume 10.5 FL (9.5-12.2); Monocytes # (A) 0.57 X 10*3/uL (0.20-1.00); Monocytes % (A) 8.5 %; NRBC Per 100 WBC 0 X 10*3/uL (0.00-0.01); Neutrophils # (A) 3.63 X 10*3/uL (1.80-7.70); Neutrophils % (A) 54.5 %; Platelet Count 186 X 10*3/uL (140-440); RBC 4.84 X 10*6/uL (4.40-5.60); RDW 12.9 % (11.5-14.5); WBC 6.68 X 10*3/uL (4.50-10.00)
[2024-03-06 11:48] LABS: Creatine Kinase 224 U/L (35-257)
[2024-03-06 11:49] LABS: ALT 34 U/L (10-49); AST 21 U/L (14-35); Albumin 4.3 g/dL (3.8-4.9); Albumin/Globulin Ratio 1.72 Ratio (1.60-3.17); Alkaline Phosphatase 60 U/L (41-126); BUN/Creat Ratio 17.89 Ratio (12.00-20.00); Blood Urea Nitrogen 16.1 mg/dL (9.0-27.0); Calcium 9.1 mg/dL (8.7-10.3); Carbon Dioxide 26.1 mmol/L (21.6-31.8); Chloride 104 mmol/L (96-109); Chol/HDL Ratio 3.59 Ratio; Globulin 2.5 g/dL (1.6-3.3); Glucose 172 mg/dL (70-110); LDL Cholesterol,Calculated 77.8 mg/dL (0.0-131.0); Potassium 4.4 mmol/L (3.5-5.5); Prostate Specific Antigen 0.95 ng/mL (0.000-4.500); Sodium 140 mmol/L (135-145); Total Bilirubin 0.4 mg/dL (0.3-1.2); Total Protein 6.8 g/dL (6.2-8.2)
== END | disposition home or self-care (01) ==
LOC: LABWHC1 08:00
PROVIDERS: ATTEND Family Medicine
DX: Z00.00 Encounter for general adult medical examination without abnormal findings (principal); Z12.5 Encounter for screening for malignant neoplasm of prostate; I10 Essential (primary) hypertension; E66.09 Other obesity due to excess calories; K21.00 Gastro-esophageal reflux disease with esophagitis, without bleeding; E78.2 Mixed hyperlipidemia; E55.9 Vitamin D deficiency, unspecified; K57.32 Diverticulitis of large intestine without perforation or abscess without bleeding; R60.9 Edema, unspecified
CPT/HCPCS: 36415; 80053; 80061; 82306; 82550; 84153; 84443; 85025

== ENCOUNTER → 2024-08-17 | Outpatient (CLI) | payer MEDICAID ==
[2024-08-17 15:31] LABS: Basophils # (A) 0.07 X 10*3/uL (0.00-0.10); Eosinophils # (A) 0.32 X 10*3/uL (0.04-0.35); Eosinophils % (A) 4.4 %; HCT 43.4 % (39.6-50.0); HGB 15.1 g/dL (13.0-17.0); Lymphocytes # (A) 1.98 X 10*3/uL (0.90-5.00); Lymphocytes % (A) 27.4 %; MCH 31.4 pg (27.0-32.0); MCHC 34.8 g/dL (32.0-37.0); MCV 90.2 FL (80.0-97.0); Monocytes # (A) 0.63 X 10*3/uL (0.20-1.00); Monocytes % (A) 8.7 %; NRBC Per 100 WBC 0 X 10*3/uL (0.00-0.01); Neutrophils # (A) 4.22 X 10*3/uL (1.80-7.70); Neutrophils % (A) 58.4 %; Platelet Count 185 X 10*3/uL (140-440); RBC 4.81 X 10*6/uL (4.40-5.60); RDW 13.1 % (11.5-14.5); WBC 7.23 X 10*3/uL (4.50-10.00)
[2024-08-17 18:17] LABS: Creatine Kinase 272 U/L (35-257)
[2024-08-17 18:18] LABS: ALT 55 U/L (10-49); AST 27 U/L (14-35); Albumin 4.2 g/dL (3.8-4.9); Albumin/Globulin Ratio 1.68 Ratio (1.60-3.17); Alkaline Phosphatase 62 U/L (41-126); BUN/Creat Ratio 15.44 Ratio (12.00-20.00); Blood Urea Nitrogen 13.9 mg/dL (9.0-27.0); Calcium 8.7 mg/dL (8.7-10.3); Carbon Dioxide 21.9 mmol/L (21.6-31.8); Chloride 107 mmol/L (96-109); Globulin 2.5 g/dL (1.6-3.3); Glucose 170 mg/dL (70-110); LDL Cholesterol,Calculated 66.9 mg/dL (0.0-131.0); Potassium 4.4 mmol/L (3.5-5.5); Sodium 142 mmol/L (135-145); Total Bilirubin 0.3 mg/dL (0.3-1.2); Total Protein 6.7 g/dL (6.2-8.2)
[2024-08-17 21:56] LABS: Microalbumin Creatinine Ratio <6 mg/g Cr (0-30)
== END | disposition home or self-care (01) ==
LOC: LABWHC1 08:41
PROVIDERS: ATTEND Family Medicine
DX: I10 Essential (primary) hypertension (principal); E66.09 Other obesity due to excess calories; E11.65 Type 2 diabetes mellitus with hyperglycemia; K21.9 Gastro-esophageal reflux disease without esophagitis; E78.2 Mixed hyperlipidemia; E55.9 Vitamin D deficiency, unspecified; K57.32 Diverticulitis of large intestine without perforation or abscess without bleeding; Z79.899 Other long term (current) drug therapy; R60.9 Edema, unspecified
CPT/HCPCS: 36415; 80053; 80061; 82043; 82550; 82570; 84443; 85025

== ENCOUNTER → 2025-02-02 | Outpatient (CLI) | payer MEDICAID ==
[2025-02-02 15:01] LABS: HGB 16.3 g/dL (13.0-17.0); MCH 31.3 pg (27.0-32.0); MCV 92.1 FL (80.0-97.0); Mean Platelet Volume 10.5 FL (9.5-12.2); NRBC Per 100 WBC 0 X 10*3/uL (0.00-0.01); Platelet Count 183 X 10*3/uL (140-440); RBC 5.21 X 10*6/uL (4.40-5.60)
[2025-02-02 15:26] LABS: ALT 64 U/L (10-49); AST 31 U/L (14-35); Albumin 4.5 g/dL (3.8-4.9); Albumin/Globulin Ratio 1.67 Ratio (1.60-3.17); Alkaline Phosphatase 65 U/L (41-126); BUN/Creat Ratio 20.62 Ratio (12.00-20.00); Blood Urea Nitrogen 16.5 mg/dL (9.0-27.0); Calcium 9.5 mg/dL (8.7-10.3); Chloride 105 mmol/L (96-109); Chol/HDL Ratio 3.53 Ratio; Globulin 2.7 g/dL (1.6-3.3); Glucose 210 mg/dL (70-110); LDL Cholesterol,Calculated 83.2 mg/dL (0.0-131.0); Potassium 4.7 mmol/L (3.5-5.5); Sodium 142 mmol/L (135-145); Total Bilirubin 0.6 mg/dL (0.3-1.2); Total Protein 7.2 g/dL (6.2-8.2); VLDL Calculation 19.28 mg/dL (5.00-40.00)
[2025-02-02 18:13] LABS: Microalbumin Creatinine Ratio <5 mg/g Cr (0-30)
== END | disposition home or self-care (01) ==
LOC: LABWHC1 10:21
PROVIDERS: ATTEND Family Medicine
DX: I10 Essential (primary) hypertension (principal); E11.65 Type 2 diabetes mellitus with hyperglycemia; E78.2 Mixed hyperlipidemia; E55.9 Vitamin D deficiency, unspecified; E66.09 Other obesity due to excess calories; K21.9 Gastro-esophageal reflux disease without esophagitis; R60.9 Edema, unspecified; K21.00 Gastro-esophageal reflux disease with esophagitis, without bleeding; K57.32 Diverticulitis of large intestine without perforation or abscess without bleeding; Z79.899 Other long term (current) drug therapy; Z68.44 Body mass index [BMI] 60.0-69.9, adult
CPT/HCPCS: 36415; 80053; 80061; 82043; 82570; 84443; 85027

== ENCOUNTER 2025-03-27 06:40 | Day surgery (SDC) | payer MEDICAID ==
[2025-03-23 16:11] VITALS: BMI 33.9
[~2025-03-27 06:40] MED LIST changes: -LACTATED RINGERS 1,000 ML IV SCH
[2025-03-27 07:18] VITALS: TEMP 97.6
[2025-03-27] MEDS: NA PHOS,M-B/NA PHOS,DI-BA 133 ML ENEMA RECTAL STA (07:18)
[2025-03-27] MEDS: LACTATED RINGERS 1,000 ML IV SCH (07:22)
[2025-03-27 07:37] LABS: Glucose,Whole Blood 218 mg/dL (70-110)
[2025-03-27] MEDS: LACTATED RINGERS 1,000 ML IV ONE (07:38)
[2025-03-27] MEDS ORDERED: PROPOFOL 10 MG/ML 20 ML VIAL IV ONE (07:47)
--- NOTE | 2025-03-27 07:53 | P.GSHP ---
History of Present Illness H&P Date: 03/27/25 Chief Complaint: Colon cancer screening with history of polyps 64-year-old male here for screening colonoscopy. Last colonoscopy performed June 2022. Patient had a small tubular adenoma at the time. Some mild chronic constipation issues. Never tolerates prep as well. Family history of precancerous polyps in his mother. 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 con stipation, History of Any Multi-Drug Resistant Organisms: None Reported Past Surgical History: Appendectomy, Cholecystectomy, Hernia Repair Additional Past Surgical History / Comment(s): L partial nephrectomy, colonoscopy with polypectomy, R inguinal hernia repair, bilateral hydrocele surgery, vas deferens repair, cystoscopy, hemorrhoidectomy. Past Anesthesia/Blood Transfusion Reactions: Malignant Hyperthermia, Postoperative Nausea & Vomiting (PONV) Additional Past Anesthesia/Blood Transfusion Reaction / Comment(s): MALIGNANT HYPERTHERMIA, dx age 26, surgery for hydrocele done at [facility] Smoking Status: Current every day smoker - Past Family History Father Family Medical History: Coronary Artery Disease (CAD), Hyperlipidemia Additional Family Medical History / Comment(s): 4 vessel CABG at age 55 and a pacer at age 57yrs. Father at the age of 87yrs. Mother Family Medical History: No Reported History Additional Family Medical History / Comment(s): colon polyps. Medications and Allergies Home Medications Medication Instructions Recorded Confirmed Type Aspirin 81 mg PO DAILY 08/02/14 03/23/25 History Ezetimibe 10 mg PO HS 07/07/19 03/23/25 History Famotidine [Pepcid] 20 mg PO W/SUPPER 07/07/19 03/23/25 History Furosemide [Lasix] 20 mg PO DAILY 07/07/19 03/23/25 History Cinnamon Bark [Cinnamon] 1,000 mg PO DAILY 02/27/22 03/27/25 History Garlic 1,000 mg PO DAILY 02/27/22 03/23/25 History [place]-3 Fatty Acids/Fish Oil [Fish 2 tab PO PC-LUNCH 02/27/22 03/23/25 History Oil 1,000 mg Softgel] Atorvastatin [Lipitor] 40 mg PO 2000 06/18/22 03/27/25 History Cholecalciferol [Vitamin D3 (25 25 mcg PO DAILY 06/18/22 03/23/25 History Mcg = 1000 Iu)] Losartan [Cozaar] 50 mg PO DAILY 06/18/22 03/27/25 History Montelukast [Singulair] 10 mg PO DAILY PRN 06/18/22 03/27/25 History Multivit-Minerals/FA/Lycopene 1 each PO DAILY 03/23/25 03/23/25 History [One-A-Day Men's 50 Plus Tablet] sitaGLIPtin [Januvia] 100 mg PO DAILY 03/23/25 03/23/25 History Allergies Allergy/AdvReac Type Severity Reaction Status Date / Time Iodinated Contrast Media Allergy UNKNOWN-OK Verified 03/27/25 07:05 [Iodinated Contrast Media - WITH IV Dye] PREMEDS anesthetics (unknown) Allergy see Uncoded 06/23/22 07:41 comments Surgical - Exam Vital Signs Temp Pulse Resp BP Pulse Ox 97.6 F 84 16 130/81 97 03/27/25 07:16 03/27/25 07:16 03/27/25 07:16 03/27/25 07:16 03/27/25 07:16 Physical exam: General: Well-developed, well-nourished HEENT: Normocephalic, sclerae nonicteric Abdomen: Nontender, nondistended Extremities: No edema Neuro: Alert and oriented Results - Labs Abnormal Lab Results - Last 24 Hours (Table) 03/27/25 Range/Units 07:35 POC Glucose (mg/dL) 218 H (70-110) mg/dL Assessment and Plan (1) Colon cancer screening Narrative/Plan: Will proceed with colonoscopy at this time. Current Visit: No Status: Acute Code(s): Z12.11 - ENCOUNTER FOR SCREENING FOR MALIGNANT NEOPLASM OF COLON SNOMED Code(s): 066029569
--- NOTE | 2025-03-27 08:15 | P.PCN ---
Date of Procedure: 03/27/25 Procedure(s) Performed: PREOPERATIVE DIAGNOSIS: Colon cancer screening with history of polyps POSTOPERATIVE DIAGNOSIS: 3 ascending colon polyps, poor prep, diverticulosis PROCEDURE: Colonoscopy with snare polypectomy ANESTHESIA: MAC SURGEON: Spencer Reece M.D. SPECIMENS: Polyps ENDOSCOPIC PROCEDURE: The patient was placed on the endoscopy table in the left decubitus position. The Olympus colonoscope was inserted into the anus and passed under direct visualization to the base of the cecum. The appendiceal orifice was visualized. From that point the scope was slowly withdrawn inspecting all surfaces carefully. There were no neoplastic inflammatory or polypoid lesions throughout the cecum. In the ascending colon 3 polyps were seen and removed using the snare with cautery technique. The remainder of the visualized ascending transverse descending sigmoid and rectum was normal. The patient's prep was poor with both liquid and solid stool scattered throughout the colon limiting our visualization. The patient has scattered left-sided diverticulosis with tortuosity. Digital rectal examination was normal. The patient was taken to the recovery room in stable condition per anesthesia guidelines. RECOMMENDATIONS: Await biopsy results. Recommend repeat colonoscopy 2 to 3 years given the patient's poor prep. Will require 2-day bowel cleanse.
[2025-03-27 08:45] LABS: Glucose,Whole Blood 240 mg/dL (70-110)
[2025-03-27 08:54] VITALS: BP 124/84; PULSE 72; RESP 18
== END 2025-03-27 09:06 | disposition home or self-care (01) ==
LOC: ORWHC2ENDO 06:40
PROVIDERS: ATTEND Surgery
DX: Z12.11 Encounter for screening for malignant neoplasm of colon (principal); D12.2 Benign neoplasm of ascending colon; K57.30 Diverticulosis of large intestine without perforation or abscess without bleeding; I10 Essential (primary) hypertension; E11.9 Type 2 diabetes mellitus without complications; E78.5 Hyperlipidemia, unspecified; J45.909 Unspecified asthma, uncomplicated; K59.09 Other constipation; K21.9 Gastro-esophageal reflux disease without esophagitis; Z91.89 Other specified personal risk factors, not elsewhere classified; F17.200 Nicotine dependence, unspecified, uncomplicated; Z79.82 Long term (current) use of aspirin; Z79.84 Long term (current) use of oral hypoglycemic drugs; Z79.899 Other long term (current) drug therapy; Z86.0101 Personal history of adenomatous and serrated colon polyps; Z90.5 Acquired absence of kidney; Z88.4 Allergy status to anesthetic agent; Z91.041 Radiographic dye allergy status; Z83.710 Family history of adenomatous and serrated polyps
CPT/HCPCS: 88305; 45385; J2704